=== PATIENT | female | born 1945 | race Caucasian/White ===

== ENCOUNTER 2016-09-22 04:15 | Emergency (ER) | payer MEDICARE, OTHER ==
[~2016-09-22] VITALS: Ht 157.5 cm; Wt 121.5 kg
[2016-09-22 04:15] VITALS: TEMP 98.1; Ht 157.5 cm; Wt 121.5 kg
--- OUTSIDE RECORDS SUMMARY | 2016-09-22 04:23 | XMS REPORT | Referral Summary ---
Author Author [facility], [facility] Organization [facility] Address Unknown Phone Unavailable Care Team Providers Care Line Inspector Name Role Phone Dallin Marie Primary Care Physician [phone] Encounter VC Date(s): 03/03/16 - 03/03/16 [facility], [address] [place] [id number] Discharge Disposition: 01-Home or Self Care Attending Physician: Guillermo Marie MD Admitting Physician: Guillermo Marie MD Vital Signs Most recent to 1 oldest [Reference Range]: Blood Pressure 144/70 mmHg [90-140/60-90 mmHg] *HI* (03/03/16 1:05 PM) Problem List Condition Effective Dates Status Health Status Informant Back pain(Confirmed) Active Benign essential Active hypertension(Confirm ed) Chronic kidney Active disease (CKD)(Confirmed) Dry eyes(Confirmed) Active Headache(Confirmed) Active Hyperlipidemia(Confi Active rmed) Chronic knee Active pain(Confirmed) Onychomycosis(Confir Active med) Overweight(Confirmed Active ) Scarlet Active fever(Confirmed) Snoring(Confirmed) Active Diabetes mellitus Active type 1 with comp(Confirmed) Chickenpox(Confirmed Active ) Allergies, Adverse Reactions, Alerts No Known Medication Allergies Medications Actos 45 mg oral tablet 22.5 mg 0.5 tabs, Oral, Daily, # 15 tabs, 0 Refill(s), Pharmacy: [id number], 0.5 tabs Oral Daily Start Date: 09/05/15 Status: Ordered albuterol 2 puffs, Inhalation, q4hr, as needed, HFA 90 mcg/actuation inhaler Start Date: 05/10/14 Status: Ordered amLODIPine-benazepril 10 mg-40 mg oral capsule See Instructions, 1 CAPS ORAL DAILY,X90 DAYS, # 90 caps, eRx: [facility] [id number], 1 CAPS ORAL DAILY,X90 DAYS Start Date: 08/13/15 Status: Ordered aspirin 81 mg oral tablet, chewable 1 tabs, Oral, Daily Start Date: 05/10/14 Status: Ordered Claritin 10 mg oral tablet 1 tabs, Oral, Daily Start Date: 05/10/14 Status: Ordered Fish Oil 1000 mg oral capsule 1 caps, Oral, Daily Start Date: 05/10/14 Status: Ordered glimepiride 4 mg oral tablet See Instructions, 1 TABS ORAL DAILY,X90 DAYS, # 90 tabs, eRx: [facility] [id number], 1 TABS ORAL DAILY,X90 DAYS Start Date: 08/13/15 Status: Ordered Glucometer strips (DME) DME Item Trutrack Test Strips; test blood sugar daily, See Instructions, Supply Start Date: 05/10/14 Status: Ordered hydrochlorothiazide 25 mg oral tablet See Instructions, TAKE 1 TABLET BY MOUTH TWICE DAILY FOR 90 DAYS, # 180 tabs, eRx: [facility] , TAKE 1 TABLET BY MOUTH TWICE DAILY FOR 90 DAYS Start Date: 01/31/16 Status: Ordered Jardiance 10 mg oral tablet See Instructions, TAKE TABLET BY MOUTH EVERY MORNING, # 90 tabs, eRx: [facility] [id number], TAKE TABLET BY MOUTH EVERY MORNING Start Date: 01/03/16 Status: Ordered Keflex 500 mg oral capsule 500 mg 1 caps, Oral, QID, X 5 days, # 20 caps, 0 Refill(s), Pharmacy: [facility] [id number], 1 caps Oral QID,x5 days Start Date: 03/03/16 Stop Date: 03/08/16 Status: Ordered metFORMIN 500 mg oral tablet See Instructions, TAKE 1 TABLET BY MOUTH EVERY MORNING AND 2 TABLETS BY MOUTH IN THE EVENING, # 270 tabs, eRx: [facility] [id number], TAKE 1 TABLET BY MOUTH EVERY MORNING AND 2 TABLETS BY MOUTH IN THE EVENING Start Date: 01/30/16 Status: Ordered Metoprolol Succinate ER 50 mg oral tablet, extended release See Instructions, TAKE 1 TABLET BY MOUTH DAILY, # 90 tabs, eRx: [facility] [id number], TAKE 1 TABLET BY MOUTH DAILY Start Date: 01/31/16 Status: Ordered multivitamin 1 tabs, Oral, Daily Start Date: 05/10/14 Status: Ordered mupirocin 2% topical ointment 1 karthikeyan, Topical, BID, apply 1 gram to affected area on face bid for 5 days, # 22 g, 0 Refill(s), Pharmacy: [facility] [id number] Start Date: 03/03/16 Status: Ordered pioglitazone 45 mg oral tablet See Instructions, 1 TABS ORAL DAILY, # 90 tabs, eRx: [facility] [id number] , 1 TABS ORAL DAILY Start Date: 08/13/15 Status: Ordered potassium chloride 10 mEq oral capsule, extended release See Instructions, TAKE 1 CAPSULE BY MOUTH TWICE DAILY FOR 90 DAYS, # 180 caps, eRx: [facility] [id number], TAKE 1 CAPSULE BY MOUTH TWICE DAILY FOR 90 DAYS Start Date: 01/30/16 Status: Ordered simvastatin 20 mg oral tablet See Instructions, TAKE 1 TABLET BY MOUTH EVERY NIGHT AT BEDTIME FOR 90 DAYS, # 90 tabs, eRx: [facility] [id number], TAKE 1 TABLET BY MOUTH EVERY NIGHT AT BEDTIME FOR 90 DAYS Start Date: 01/30/16 Status: Ordered Results Hematology Most recent to 1 oldest [Reference Range]: WBC [4.8-10.8 9.7 10*3/uL 10*3/uL] (03/03/16 1:45 PM) RBC [4.00-5.20] 5.66 *HI* (03/03/16 1:45 PM) Hgb [12.0-16.0 16.4 gm/dL gm/dL] *HI* (03/03/16 1:45 PM) Hct [37.0-47.0 %] 52.4 % *HI* (03/03/16 1:45 PM) MCV [82.0-99.0 fL] 92.6 fL (03/03/16 1:45 PM) MCH [27.0-32.0 pg] 29.0 pg (03/03/16 1:45 PM) MCHC [32.0-36.0 31.3 gm/dL gm/dL] *LOW* (03/03/16 1:45 PM) RDW [11.5-14.5 %] 15.0 % *HI* (03/03/16 1:45 PM) Platelet [150-400 217 10*3/uL 10*3/uL] (03/03/16 1:45 PM) MPV [8.8-14.8 fL] 12.1 fL (03/03/16 1:45 PM) Immature 0.3 % Granulocytes (03/03/16 1:45 PM) [0.0-1.0 %] Neutrophils [51-75 50 % %] *LOW* (03/03/16 1:45 PM) Lymphocytes [20-46 39 % %] (03/03/16 1:45 PM) Monocytes [4-11 %] 7 % (03/03/16 1:45 PM) Eosinophils [0-4 %] 4 % (03/03/16 1:45 PM) Basophils [0-2 %] 0 % (03/03/16 1:45 PM) Neutro Absolute 4.81 10*3 [1.90-7.00 10*3] (03/03/16 1:45 PM) Lymph Absolute 3.75 10*3 [0.80-3.30 10*3] *HI* (03/03/16 1:45 PM) [place]enton Absolute 0.72 10*3 [0.30-1.00 10*3] (03/03/16 1:45 PM) Eos Absolute 0.34 10*3 [0.00-0.50 10*3] (03/03/16 1:45 PM) Baso Absolute 0.02 10*3 [0.00-0.20 10*3] (03/03/16 1:45 PM) Chemistry Most recent to 1 oldest [Reference Range]: Sodium Lvl [135-144 138 mEq/L mEq/L] (03/03/16 1:45 PM) Potassium Lvl 4.3 mEq/L [3.5-5.2 mEq/L] (03/03/16 1:45 PM) Chloride [99-111 97 mEq/L mEq/L] *LOW* (03/03/16 1:45 PM) CO2 [22-31 mEq/L] 27 mEq/L (03/03/16 1:45 PM) AGAP [3-20] 14 (03/03/16 1:45 PM) BUN [10-20 mg/dL] 14 mg/dL (03/03/16 1:45 PM) Glucose Lvl [70-99 138 mg/dL mg/dL] *HI* (03/03/16 1:45 PM) Creatinine Lvl 1.09 mg/dL [0.57-1.11 mg/dL] (03/03/16 1:45 PM) eGFR [>60 mL/min] 50 mL/min 1 *ABN* (03/03/16 1:45 PM) Calcium Lvl 9.8 mg/dL [8.9-10.5 mg/dL] (03/03/16 1:45 PM) Albumin Lvl [3.4-4.8 4.4 gm/dL gm/dL] (03/03/16 1:45 PM) Total Protein 7.5 gm/dL [6.0-7.6 gm/dL] (03/03/16 1:45 PM) Globulin [1.8-4.0 3.1 gm/dL gm/dL] (03/03/16 1:45 PM) ALT [0-55 U/L] 26 U/L (03/03/16 1:45 PM) AST [5-34 U/L] 33 U/L (03/03/16 1:45 PM) Alk Phos [40-150 45 U/L U/L] (03/03/16 1:45 PM) Bili Total [0.2-1.2 0.7 mg/dL mg/dL] (03/03/16 1:45 PM) Chol [0-199 mg/dL] 142 mg/dL (03/03/16 1:45 PM) Trig [0-149 mg/dL] 191 mg/dL *HI* (03/03/16 1:45 PM) HDL [40-84 mg/dL] 57 mg/dL (03/03/16 1:45 PM) LDL [0-130 mg/dL] 47 mg/dL (03/03/16 1:45 PM) VLDL Cholesterol 38 mg/dL [0-28 mg/dL] *HI* (03/03/16 1:45 PM) Cardiac Risk 2.5 [0.0-5.0] (03/03/16 1:45 PM) TSH with Reflex Free 0.77 T4 [0.35-4.94] (03/03/16 1:45 PM) Hgb A1c [4.1-5.6 %] 7.6 % *HI* (03/03/16 1:45 PM) eAvg Glucose 171.4 mg/dL (03/03/16 1:45 PM) 1Result Comment: Multiply eGFR results by 1.21 for race. Urinalysis Most recent to 1 oldest [Reference Range]: UA Color Yellow (03/03/16 2:05 PM) UA Appear Cloudy *ABN* (03/03/16 2:05 PM) UA pH [5.0-8.0] 5.5 (03/03/16 2:05 PM) UA Leuk Est Trace [Negative] *ABN* (03/03/16 2:05 PM) UA Nitrite Negative [Negative] (03/03/16 2:05 PM) UA Protein Negative [Negative] (03/03/16 2:05 PM) UA Glucose Pos 3+ [Negative] *ABN* (03/03/16 2:05 PM) UA Ketones Negative [Negative] (03/03/16 2:05 PM) UA Urobilinogen 0.2 mg/dL [<1.0 mg/dL] (03/03/16 2:05 PM) UA Bili [Negative] Negative (03/03/16 2:05 PM) UA Blood [Negative] Negative (03/03/16 2:05 PM) UA Spec Grav 1.018 [1.003-1.030] (03/03/16 2:05 PM) Type Voided (03/03/16 2:05 PM) UA WBC [0-4] 10-20 *ABN* (03/03/16 2:05 PM) UA RBC [0-4] 0-4 (03/03/16 2:05 PM) Epithelial Cells 2-5 (03/03/16 2:05 PM) UA Hyal Cast [0-3] 1-3 (03/03/16 2:05 PM) Immunizations No data available for this section Procedures Procedure Date Related Diagnosis Body Site Cholecystectomy Social History Social History Type Response Smoking Status Never smoker Assessment and Plan Extracted from: Title: Ambulatory Patient Education Author: Guillermo Marie MD Date: 06/06 Family Medicine Community-Associated MRSA, [place] CA-MRSA stands for community-associated methicillin-resistant Staphylococcus aureus. MRSA is a type of bacteria that is resistant to some common antibiotics. It can cause infections in the skin and many other places in the body. Staphylococcus aureus, often called "staph," is a bacteria that normally lives on the skin or in the nose. Staph on the surface of the skin or in the nose does not cause problems. However, if the staph enters the body through a cut, wound, or break in the skin, an infection can happen. Up until recently, infections with the MRSA type of staph mainly occurred in hospitals and other health care settings. There are now increasing problems with MRSA infections in the community as well. Infections with MRSA may be very serious or even life threatening. CA-MRSA is becoming more common. It is known to spread in crowded settings, in jails and prisons, and in situations where there is close pwey-em-yair contact, such as during sporting events or in locker rooms. MRSA can be spread through shared items, such as children's toys, razors, towels, or sports equipment. CAUSES All staph, including MRSA, are normally harmless unless they enter the body through a scratch, cut, or wound, such as with surgery. All staph, including MRSA, can be spread from [id number]-ii-[id number] by touching contaminated objects or through direct contact. MRSA now causes illness in people who have not been in hospitals or other health care facilities. Cases of MRSA diseases in the community have been associated with: Recent antibiotic use. Sharing contaminated towels or clothes. Having active skin diseases. Participating in contact sports. Living in crowded settings. Intravenous (IV) drug use. Community-associated MRSA infections are usually skin infections, but may cause other severe illnesses. Staph bacteria are one of the most common causes of skin infection. However, they are also a common cause of pneumonia, bone or joint infections, and bloodstream infections. SCREENING AT [facility] (For compliance with the 2008 Medical Facility Infection Control and Prevention Act) As a part of our hospital's commitment to reduce antibiotic-resistant bacteria and keep patients safe, patients who meet specific criteria will have a culture collected from their nose in order to determine if they are carriers of the MRSA bacteria. If your culture comes back positive, nurses, doctors, and other health care staff will wear gowns and gloves when they come into your room. These protective measures are necessary to assure the highest level of safety for our patients. DIAGNOSIS Diagnosis of MRSA is done by cultures of fluid samples that may come from: Swabs taken from cuts or wounds in infected areas. Nasal swabs. Saliva or deep cough specimens from the lungs (sputum). Urine. Blood. Many people are "colonized" with MRSA but have no signs of infection. This means that people carry the MRSA germ on their skin or in their nose and may never develop MRSA infection. TREATMENT Treatment varies and is based on how serious, how deep, or how extensive the infection is. For example: Some skin infections, such as a small boil or abscess, may be treated by draining yellowish-white fluid (pus) from the site of the infection. Deeper or more widespread soft tissue infections are usually treated with surgery to drain pus and with antibiotic medicine given by vein or by mouth. This may be recommended even if you are . Serious infections may require a hospital stay. If antibiotics are given, they may be needed for several weeks. PREVENTION Because many people are colonized with staph, including MRSA, preventing the spread of the bacteria from [id number]-[id number] is most important. The best way to prevent the spread of bacteria and other germs is through proper hand washing or by using alcohol-based hand disinfectants. The following are other ways to help prevent MRSA infection within community settings. Wash your hands frequently with soap and water for at least 15 seconds. Otherwise, use alcohol-based hand disinfectants when soap and water is not available. Make sure people who live with you wash their hands often, too. Do not share personal items. For example, avoid sharing razors and other personal hygiene items, towels, clothing, and athletic equipment. Wash and dry your clothes and bedding at the warmest temperatures recommended on the labels. Keep wounds covered. Pus from infected sores may contain MRSA and other bacteria. Keep cuts and abrasions clean and covered with germ-free (sterile), dry bandages until they are healed. If you have a wound that appears infected, ask your caregiver if a culture for MRSA and other bacteria should be done. If you are , talk to your caregiver about MRSA. You may be asked to temporarily stop . HOME CARE INSTRUCTIONS Take your antibiotics as directed. Finish them even if you start to feel better. Avoid close contact with those around you as much as possible. Do not use towels, razors, toothbrushes, bedding, or other items that will be used by others. To fight the infection, follow your caregiver's instructions for wound care. Wash your hands before and after changing your bandages. If you have an intravascular device, such as a catheter, make sure you know how to care for it. Be sure to tell any health care providers that you have MRSA so they are aware of your infection. SEEK IMMEDIATE MEDICAL CARE IF: The infection appears to be getting worse. Signs include: Increased warmth, redness, or tenderness around the wound site. A red line that extends from the infection site. A dark color in the area around the infection. Wound drainage that is antony, yellow, or green. A bad smell coming from the wound. You feel sick to your stomach (nauseous) and throw up (vomit) or cannot keep medicine down. You have a fever. Your baby is older than 3 months with a rectal temperature of 102F ( 38.9C) or higher. Your baby is 3 months old or younger with a rectal temperature of 100.4 F (38C) or higher. You have difficulty breathing. MAKE SURE YOU: Understand these instructions. Will watch your condition. Will get help right away if you are not doing well or get worse. This information is not intended to replace advice given to you by your health care provider. Make sure you discuss any questions you have with your health care provider. Document Released: 03/17/2009 Document Revised: 06/29/2015 Document Reviewed: [facility] Patient Information 2016 [facility]. Home Health Care Cellulitis Cellulitis is an infection of the skin and the tissue beneath it. The infected area is usually red and tender. Cellulitis occurs most often in the arms and lower legs. CAUSES Cellulitis is caused by bacteria that enter the skin through cracks or cuts in the skin. The most common types of bacteria that cause cellulitis are staphylococci and streptococci. SIGNS AND SYMPTOMS Redness and warmth. Swelling. Tenderness or pain. Fever. DIAGNOSIS Your health care provider can usually determine what is wrong based on a physical exam. Blood tests may also be done. TREATMENT Treatment usually involves taking an antibiotic medicine. HOME CARE INSTRUCTIONS Take your antibiotic medicine as directed by your health care provider. Finish the antibiotic even if you start to feel better. Keep the infected arm or leg elevated to reduce swelling. Apply a warm cloth to the affected area up to 4 times per day to relieve pain. Take medicines only as directed by your health care provider. Keep all follow-up visits as directed by your health care provider. SEEK MEDICAL CARE IF: You notice red streaks coming from the infected area. Your red area gets larger or turns dark in color. Your bone or joint underneath the infected area becomes painful after the skin has healed. Your infection returns in the same area or another area. You notice a swollen bump in the infected area. You develop new symptoms. You have a fever. SEEK IMMEDIATE MEDICAL CARE IF: You feel very sleepy. You develop vomiting or diarrhea. You have a general ill feeling (malaise) with muscle aches and pains. MAKE SURE YOU: Understand these instructions. Will watch your condition. Will get help right away if you are not doing well or get worse. This information is not intended to replace advice given to you by your health care provider. Make sure you discuss any questions you have with your health care provider. Document Released: 03/18/2006 Document Revised: 06/29/2015 Document Reviewed: [facility] Patient Information 2016 [employer] [facility]. No follow up information was provided. Extracted from: Title: Office Visit Note Author: Guillermo Marie MD Date: 03/03/16 Assessment/Plan Abscess Culture pending. Ordered: Wound Culture Benign essential hypertension This issue was reviewed, appears stable, and current therapy continued except as mentioned. Appropriate lab was reviewed from the most recent appropriate entry and lab was ordered if needed in the cpoe /nursing orders, and follow up recommended generally in 90 days and no later then six months. The patient reports their blood pressure has been stable at home and is not having any significant or related problems. There has been no chest pain, chest pressure, soa/hurst. The patient has family members present who are agreeable with today's plan and have no additional concerns or requests. Rip here. Cellulitis Keflex 500mg po qid for five days and bactroban ointment bid for five days. Tdap recommended and refused. Chronic kidney disease (CKD) This issue was reviewed, appears stable, and current therapy continued except as mentioned. Appropriate lab was reviewed from the most recent appropriate entry and lab was ordered if needed in the cpoe /nursing orders, and follow up recommended generally in 90 days and no later then six months. Chronic knee pain This issue was reviewed, appears stable, and current therapy continued except as mentioned. Appropriate lab was reviewed from the most recent appropriate entry and lab was ordered if needed in the cpoe/nursing orders, and follow up recommended generally in 90 days and no later then six months. Stable at this time per her. Diabetes mellitus type 1 with comp This issue was reviewed, appears stable, and current therapy continued except as mentioned. Appropriate lab was reviewed from the most recent appropriate entry and lab was ordered if needed in the cpoe/nursing orders, and follow up recommended generally in 90 days and no later then six months. The patient was notified for the need for regular quarterly f/u of their diabetes. Further any pertinent medication, supplies, etc were refilled. Additionally, they are to have annual eye exams, foot exams, and regular care. Hyperlipidemia This issue was reviewed, appears stable, and current therapy continued except as mentioned. Appropriate lab was reviewed from the most recent appropriate entry and lab was ordered if needed in the cpoe/nursing orders, and follow up recommended generally in 90 days and no later then six months. Lab pending.
--- OUTSIDE RECORDS SUMMARY | 2016-09-22 04:23 | XMS REPORT | Referral Summary ---
Author Author [facility] Organization [facility] Address Unknown Phone Unavailable Care Team Providers Care Certified Juvenile Probation Officer Name Role Phone Dallin Marie Primary Care Physician [phone] Encounter VC Date(s): 05/25/15 - 05/25/15 [facility] [address] [place] [address] Discharge Disposition: 01-Home or Self Care Attending Physician: Guillermo Marie MD Admitting Physician: Guillermo Marie MD Vital Signs Most recent to 1 oldest [Reference Range]: Blood Pressure 130/80 mmHg [90-140/60-90 mmHg] (05/25/15 1:09 PM) Problem List Condition Effective Dates Status Health Status Informant Back pain(Confirmed) Active Benign essential Active hypertension(Confirm ed) Chronic kidney Active disease (CKD)(Confirmed) Dry eyes(Confirmed) Active Headache(Confirmed) Active Hyperlipidemia(Confi Active rmed) Chronic knee Active pain(Confirmed) Onychomycosis(Confir Active med) Overweight(Confirmed Active ) Scarlet Active fever(Confirmed) Diabetes mellitus Active type 1 with comp(Confirmed) Chickenpox(Confirmed Active ) Allergies, Adverse Reactions, Alerts No Known Medication Allergies Medications albuterol 2 puffs, Inhalation, q4hr, as needed, HFA 90 mcg/actuation inhaler Start Date: 05/10/14 Status: Ordered amLODIPine-benazepril 10 mg-40 mg oral capsule See Instructions, TAKE 1 CAPSULE BY MOUTH EVERY DAY, # 90 caps, 1 Refill(s), eRx : [id number], TAKE 1 CAPSULE BY MOUTH EVERY DAY Start Date: 02/05/15 Status: Ordered aspirin 81 mg oral tablet, chewable 1 tabs, Oral, Daily Start Date: 05/10/14 Status: Ordered Claritin 10 mg oral tablet 1 tabs, Oral, Daily Start Date: 05/10/14 Status: Ordered Fish Oil 1000 mg oral capsule 1 caps, Oral, Daily Start Date: 05/10/14 Status: Ordered glimepiride 4 mg oral tablet See Instructions, TAKE 1 TABLET BY MOUTH EVERY DAY, # 90 tabs, 1 Refill(s), eRx : [facility] [id number], TAKE 1 TABLET BY MOUTH EVERY DAY Start Date: 02/05/15 Status: Ordered Glucometer strips (DME) DME Item [facility] Test Strips; test blood sugar daily, See Instructions, Supply Start Date: 05/10/14 Status: Ordered hydrochlorothiazide 25 mg oral tablet See Instructions, TAKE 1 TABLET BY MOUTH TWICE DAILY, # 180 tabs, 1 Refill(s), eRx: [facility] , TAKE 1 TABLET BY MOUTH TWICE DAILY Start Date: 02/05/15 Status: Ordered Jardiance 10 mg oral tablet 1/2 tabs, Oral, qAM, # 30 Each, 0 Refill(s), samples given to patient (Rx) Start Date: 04/26/15 Status: Ordered metFORMIN 500 mg oral tablet See Instructions, TAKE 1 TABLET IN THE AM, AND 2 TABS IN THE PM, # 270 tabs, 1 Refill(s), eRx: [facility] [id number], TAKE 1 TABLET IN THE AM, AND 2 TABS IN THE PM Start Date: 02/05/15 Status: Ordered Metoprolol Succinate ER 50 mg oral tablet, extended release 50 mg 1 tabs, Oral, Daily, # 90 tabs, 0 Refill(s), Pharmacy: [facility] [id number] Start Date: 02/20/15 Status: Ordered multivitamin 1 tabs, Oral, Daily Start Date: 05/10/14 Status: Ordered pioglitazone 45 mg oral tablet See Instructions, TAKE 1 TABLET BY MOUTH DAILY, # 90 tabs, 1 Refill(s), eRx: [facility] [id number], TAKE 1 TABLET BY MOUTH DAILY Start Date: 02/05/15 Status: Ordered potassium chloride 10 mEq oral capsule, extended release See Instructions, TAKE 1 CAPSULE BY MOUTH TWICE DAILY, # 180 caps, 1 Refill(s), eRx: [facility] [id number], TAKE 1 CAPSULE BY MOUTH TWICE DAILY Start Date: 02/05/15 Status: Ordered simvastatin 20 mg oral tablet See Instructions, 1 TABS ORAL BEDTIME (ONCE A DAY),X90 DAYS, # 90 tabs, 1 Refill (s), eRx: [facility] [id number], 1 TABS ORAL BEDTIME (ONCE A DAY),X90 DAYS Start Date: 02/05/15 Status: Ordered Results No data available for this section Immunizations No data available for this section Procedures Procedure Date Related Diagnosis Body Site Cholecystectomy Social History Social History Type Response Smoking Status Never smoker Assessment and Plan Extracted from: Title: Ambulatory Patient Education Author: Guillermo aMrie MD Date: Family Medicine Cholesterol Cholesterol is a white, waxy, fat-like substance needed by your body in small amounts. The liver makes all the cholesterol you need. Cholesterol is carried from the liver by the blood through the blood vessels. Deposits of cholesterol ( plaque) may build up on blood vessel bob. These make the arteries narrower and stiffer. Cholesterol plaques increase the risk for heart attack and stroke. You cannot feel your cholesterol level even if it is very high. The only way to know it is high is with a blood test. Once you know your cholesterol levels, you should keep a record of the test results. Work with your health care provider to keep your levels in the desired range. WHAT DO THE RESULTS MEAN? Total cholesterol is a rough measure of all the cholesterol in your blood. LDL is the so-called bad cholesterol. This is the type that deposits cholesterol in the bob of the arteries. You want this level to be low. HDL is the good cholesterol because it cleans the arteries and carries the LDL away. You want this level to be high. Triglycerides are fat that the body can either burn for energy or store. High levels are closely linked to heart disease. WHAT ARE THE DESIRED LEVELS OF CHOLESTEROL? Total cholesterol below 200. LDL below 100 for people at risk, below 70 for those at very high risk. HDL above 50 is good, above 60 is best. Triglycerides below 150. HOW CAN I LOWER MY CHOLESTEROL? Diet. Follow your diet programs as directed by your health care provider. Choose fish or white meat chicken and turkey, roasted or baked. Limit fatty cuts of red meat, fried foods, and processed meats, such as sausage and lunch meats. Eat lots of fresh fruits and vegetables. Choose whole grains, beans, pasta, potatoes, and cereals. Use only small amounts of olive, corn, or canola oils. Avoid butter, mayonnaise, shortening, or palm kernel oils. Avoid foods with trans fats. Drink skim or nonfat milk and eat low-fat or nonfat yogurt and cheeses. Avoid whole milk, cream, ice cream, egg yolks, and full-fat cheeses. Healthy desserts include garett food cake, lenny snaps, animal crackers, hard candy, popsicles, and low-fat or nonfat frozen yogurt. Avoid pastries, cakes, pies, and cookies. Exercise. Follow your exercise programs as directed by your health care provider. A regular program helps decrease LDL and raise HDL. A regular program helps with weight control. Do things that increase your activity level like gardening, walking, or taking the stairs. Ask your health care provider about how you can be more active in your daily life. Medicine. Take medicine only as directed by your health care provider. Medicine may be prescribed by your health care provider to help lower cholesterol and decrease the risk for heart disease. If you have several risk factors, you may need medicine even if your levels are normal. Document Released: 03/03/2002 Document Revised: 10/23/2014 Document Reviewed: ExitCare Patient Information 2015 [employer]. This information is not intended to replace advice given to you by your health care provider. Make sure you discuss any questions you have with your health care provider. No follow up information was provided. Extracted from: Title: Office Visit Note Author: Guillermo Marie MD Date: 05/25/15 Assessment/Plan Benign essential hypertension This issue was reviewed, appears stable, and current therapy continued except as mentioned. Appropriate lab was reviewed from the most recent appropriate entry and lab was ordered if needed in the cpoe /nursing orders, and follow up recommended generally in 90 days and no later then six months. Chronic kidney disease (CKD) Stable. Lab reviewed and stable.GFR was last 59. Diabetes mellitus type 1 with comp Please make the medication adjustments we discussed. Please notify the office for any difficulties or concerns. Jardiance to 25mg 1/2 tab daily is the closest samples I have at this time. Recheck and recheck lab in 30 days. Patient very happy with progress at this time. Samples of the new medication were provided as a courtesy. Side effects were discussed and follow up was recommended. Hyperlipidemia This issue was reviewed, appears stable, and current therapy continued except as mentioned. Appropriate lab was reviewed from the most recent appropriate entry and lab was ordered if needed in the cpoe/nursing orders, and follow up recommended generally in 90 days and no later then six months. Lab reviewed. Overweight See above.
--- OUTSIDE RECORDS SUMMARY | 2016-09-22 04:23 | XMS REPORT | Referral Summary ---
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 Name Role Phone Dallin Marie Primary Care Physician [phone] Encounter VC Date(s): 08/03/15 - 08/03/15 [facility] [address] [place] [address] Discharge Disposition: 01-Home or Self Care Attending Physician: Guillermo Marie MD Admitting Physician: Guillermo Marie MD Vital Signs Most recent to 1 oldest [Reference Range]: Blood Pressure 140/80 mmHg [90-140/60-90 mmHg] (08/03/15 1:11 PM) Problem List Condition Effective Dates Status [...] # 90 caps, 1 Refill(s), eRx : [id number], TAKE 1 CAPSULE BY MOUTH EVERY DAY [...] # 90 tabs, 1 Refill(s), eRx : [facility] [id number], TAKE 1 TABLET BY MOUTH EVERY DAY Start Date: 02/05/15 Status: Ordered Glucometer strips (DME) DME Item [facility] Test Strips; test blood sugar daily, See Instructions, Supply Start Date: 05/10/14 Status: Ordered hydrochlorothiazide 25 mg oral tablet 25 mg 1 tabs, Oral, BID, X 90 days, # 180 tabs, 1 Refill(s), Pharmacy: [facility] [id number], 1 tabs Oral BID,x90 days Start Date: 08/03/15 Stop Date: 01/30/16 Status: Ordered Jardiance 10 mg oral tablet 10 mg 1 tabs, Oral, qAM, Note increase in dose., # 90 tabs, 0 Refill(s), Pharmacy: [facility] [id number], 1 tabs Oral qAM,x90 days,Instr:Note increase in dose. Start Date: 07/02/15 Stop Date: 09/30/15 Status: Ordered metFORMIN 500 mg oral tablet See Instructions, TAKE 1 TABLET IN THE AM, AND 2 TABS IN THE PM, # 270 tabs, 1 Refill(s), Pharmacy: [facility] [id number], TAKE 1 TABLET IN THE AM, AND 2 TABS IN THE PM Start Date: 08/03/15 Status: Ordered Metoprolol Succinate ER 50 mg oral tablet, extended release 50 mg 1 tabs, Oral, Daily, # 90 tabs, 1 Refill(s), Pharmacy: [facility] [id number] Start Date: 08/03/15 Status: Ordered multivitamin 1 tabs, Oral, Daily Start Date: 05/10/14 Status: Ordered pioglitazone 45 mg oral tablet 22.5 mg 0.5 tabs, Oral, Daily, X 90 days, # 45 tabs, 1 Refill(s), other reason ( Rx), TAKE 1 TABLET BY MOUTH DAILY Start Date: 08/03/15 Stop Date: 01/30/16 Status: Ordered potassium chloride 10 mEq oral capsule, extended release 10 mEq 1 caps, Oral, BID, X 90 days, # 180 caps, 1 Refill(s), Pharmacy: [id number], 1 caps Oral BID,x90 days Start Date: 08/03/15 Stop Date: 01/30/16 Status: Ordered simvastatin 20 mg oral tablet 20 mg 1 tabs, Oral, Bedtime (once a day), X 90 days, # 90 tabs, 1 Refill(s), Pharmacy: [facility] [id number], 1 tabs Oral Bedtime (once a day),x90 days Start Date: 08/03/15 Stop Date: 01/30/16 Status: Ordered Results No data available for this section Immunizations No data available for this section Procedures Procedure Date Related Diagnosis Body Site Cholecystectomy Social History Social History Type Response Smoking Status Never smoker Assessment and Plan Extracted from: Title: Ambulatory Patient Education Author: Guillermo Marie MD Date: 06/06 Family Medicine Diabetes, Feeding Your Child When a child is diagnosed with diabetes, there is always a concern about food. Food is important because it provides the nutrition needed for growth and development. Foods also play a role in controlling and maintaining blood sugar ( glucose) and preventing low blood glucose (hypoglycemia). FEEDING YOUR INFANT An with diabetes eats on a normal schedule. Breast milk or formula are both appropriate, and insulin is given based on blood glucose levels. After infancy, it is likely that a registered dietitian will help you set up a daily or weekly meal plan. MEAL PLANNING Approaches to meal planning vary. A registered dietitian can recommend the right meal plan for your child based on his or her age, size, activity, likes and dislikes, and anglican or ethnic beliefs. The dietitian may focus on food groups, exchanges, or carbohydrates. Whatever method you follow, healthy eating habits are the devine. Meals that are good for your child are good for the whole family. A healthy diet should include foods from all food groups. This includes meats, fruits, vegetables, starches, and occasional sweets. Eat 3 meals each day. Most children may also have 23 snacks each day. TIPS TO ENCOURAGE GOOD NUTRITION Promote water as the beverage of choice. Increase fiber intake. Encourage your child to eat whole grains in cereals, bread, beans, and popcorn. Increase fruit and vegetable intake. Keep cut-up vegetables available in the refrigerator. "Sneak" extra vegetables into stews, chili, and stir-delcid dishes. Occasional treats such as desserts for birthday parties or special occasions are fine. Your dietitian can help you fit them into your child's meal plan. HELP WHEN EATING OUT OR AT SCHOOL Beware of "supersizing" a food order for your child. Avoid going to buffets. They make it difficult to know the content and portion size of the food. Stick to foods you recognize and ones you know how to count. Avoid giving your child high-fat foods in excess. Try to stick to normal mealtimes. Always carry a snack for your child, in case of a delay. Work with your child's school to share and receive the information you need to help your child make good choices in the cafeteria and at school events. Special occasions and holiday cakes or treats can be worked into your child's meal plan. HEALTHY SNACK OPTIONS This is not a complete list, but it will give you ideas of what you might offer your child in place of less healthy options. Work with your child's registered dietitian for more suggestions: Raisins. Peanut butter crackers. Animal crackers. Apple slices. Celery with peanut butter. Carrot sticks. Cut-up vegetables and hummus. Cheese sticks. Yogurt with no sugar added. Pretzels and milk. Beef jerky and crackers. Whole grain crackers and cheese. BLOOD GLUCOSE GOALS Blood glucose goals for your child will vary depending on his or her age and the treatment goals set by your child's health care provider. There are 3 factors that affect blood glucose control: food, exercise or physical activity, and insulin. Your child may need extra food or less insulin with increased activity. Your child's health care provider will help you and your child with these adjustments. If your child is a picky eater and is on insulin, you may find you need to delay the mealtime insulin until you see how much he or she eats. This will give your child a more accurate dose and prevent later episodes of hypoglycemia. This information is not intended to replace advice given to you by your health care provider. Make sure you discuss any questions you have with your health care provider. Document Released: 06/10/2004 Document Revised: 10/23/2014 Document Reviewed: ExitCare Patient Information 2015 [employer] [facility]. No follow up information was provided. Extracted from: Title: Office Visit Note Author: Guillermo Marie MD Date: 08/03/15 Assessment/Plan Benign essential hypertension This issue was [...] been no chest pain, chest pressure, soa/hurst. Chronic kidney disease (CKD) This issue was reviewed, appears stable, and current therapy continued except as mentioned. Appropriate lab was reviewed from the most recent appropriate entry and lab was ordered if needed in the cpoe /nursing orders, and follow up recommended generally in 90 days and no later then six months. Limit nsaids. Diabetes mellitus type 1 with comp Samples of the new medication were provided as a courtesy. Side effects were discussed and follow up was recommended. Continue jardiance. Samples given. BGMs have been much better. HbA1C stable. Decrease actos [id number] 1/2 tab daily. Recheck in 30 days. Overweight See above. Diet and exercise as tolerated and feasible. Consider medication when interested. Orders: hydrochlorothiazide, 25 mg 1 tabs, Oral, BID, X 90 days, # 180 tabs, 1 Refill(s), Pharmacy: [facility] [id number], 1 tabs Oral BID,x90 days metFORMIN, See Instructions, TAKE 1 TABLET IN THE AM, AND 2 TABS IN THE PM, # 270 tabs, 1 Refill(s), Pharmacy: [facility] [id number], TAKE 1 TABLET IN THE AM, AND 2 TABS IN THE PM metoprolol, 50 mg 1 tabs, Oral, Daily, # 90 tabs, 1 Refill(s), Pharmacy: [facility] [id number] pioglitazone, 22.5 mg 0.5 tabs, Oral, Daily, X 90 days, # 45 tabs, 1 Refill(s) , other reason (Rx), TAKE 1 TABLET BY MOUTH DAILY potassium chloride, 10 mEq 1 caps, Oral, BID, X 90 days, # 180 caps, 1 Refill( s), Pharmacy: [facility] [id number], 1 caps Oral BID,x90 days simvastatin, 20 mg 1 tabs, Oral, Bedtime (once a day), X 90 days, # 90 tabs, 1 Refill(s), Pharmacy: [facility] [id number], 1 tabs Oral Bedtime (once a day),x90 days
--- OUTSIDE RECORDS SUMMARY | 2016-09-22 04:23 | XMS REPORT | Referral Summary ---
Author Author [facility] Organization [facility] Address Unknown Phone Unavailable Care Team Providers Care Director Of Quality Control Name Role Phone Dallin Marie Primary Care Physician [phone] Encounter VC Date(s): 07/02/15 - 07/02/15 [facility], Family [address] [place] [id number] Discharge Disposition: 01-Home or Self Care Attending Physician: Guillermo Marie MD Admitting Physician: Guillermo Marie MD Vital Signs Most recent to 1 oldest [Reference Range]: Blood Pressure 140/80 mmHg [90-140/60-90 mmHg] (07/02/15 1:05 PM) Problem List Condition Effective Dates [...] # 90 caps, 1 Refill(s), eRx : [facility], TAKE 1 CAPSULE BY MOUTH EVERY DAY [...] # 90 tabs, 1 Refill(s), [place] : [place] [id number], TAKE 1 TABLET BY MOUTH EVERY DAY Start Date: 02/05/15 Status: Ordered Glucometer strips (DME) DME Item Trutrack Test Strips; test blood sugar daily, See Instructions, Supply Start Date: 05/10/14 Status: Ordered hydrochlorothiazide 25 mg oral tablet See Instructions, TAKE 1 TABLET BY MOUTH TWICE DAILY, # 180 tabs, 1 Refill(s), [place]: [place] [place] [address], TAKE 1 TABLET BY MOUTH TWICE DAILY Start Date: 02/05/15 Status: Ordered Jardiance 10 mg oral tablet 10 mg 1 tabs, Oral, qAM, Note increase in dose., # 90 tabs, 0 Refill(s), Pharmacy: [place] [address], 1 tabs Oral qAM,x90 days,Instr:Note increase in dose. Start Date: 07/02/15 Stop Date: 09/30/15 Status: Ordered metFORMIN 500 mg oral tablet See Instructions, TAKE 1 TABLET IN THE AM, AND 2 TABS IN THE PM, # 270 tabs, 1 Refill(s), e[place]: [place] [place] [id number], TAKE 1 TABLET IN THE AM, AND 2 TABS IN THE PM Start Date: 02/05/15 Status: Ordered Metoprolol Succinate ER 50 mg oral tablet, extended release 50 mg 1 tabs, Oral, Daily, # 90 tabs, 0 Refill(s), Pharmacy: [place] [id number] Start Date: 02/20/15 Status: Ordered multivitamin 1 tabs, Oral, Daily Start Date: 05/10/14 Status: Ordered pioglitazone 45 mg oral tablet See Instructions, TAKE 1 TABLET BY MOUTH DAILY, # 90 tabs, 1 Refill(s), eRx: [place] [place] [id number], TAKE 1 TABLET BY MOUTH DAILY Start Date: 02/05/15 Status: Ordered potassium chloride 10 mEq oral capsule, extended release See Instructions, TAKE 1 CAPSULE BY MOUTH TWICE DAILY, # 180 caps, 1 Refill(s), eRx: [facility], TAKE 1 CAPSULE BY MOUTH TWICE DAILY Start Date: 02/05/15 Status: Ordered simvastatin 20 mg oral tablet See Instructions, 1 TABS ORAL BEDTIME (ONCE A DAY),X90 DAYS, # 90 tabs, 1 Refill (s), eRx: [facility]336, 1 TABS ORAL BEDTIME (ONCE A DAY),X90 DAYS Start Date: 02/05/15 Status: Ordered Results Hematology Most recent to 1 oldest [Reference Range]: WBC [4.8-10.8 10.8 10*3/uL 10*3/uL] (07/02/15 1:38 PM) RBC [4.00-5.20] 5.86 *HI* (07/02/15 1:38 PM) Hgb [12.0-16.0 16.6 gm/dL gm/dL] *HI* (07/02/15 1:38 PM) Hct [37.0-47.0 %] 53.3 % *HI* (07/02/15 1:38 PM) MCV [82.0-99.0 fL] 91.0 fL (07/02/15 1:38 PM) MCH [27.0-32.0 pg] 28.3 pg (07/02/15 1:38 PM) MCHC [32.0-36.0 31.1 gm/dL gm/dL] *LOW* (07/02/15 1:38 PM) RDW [11.5-14.5 %] 14.5 % (07/02/15 1:38 PM) Platelet [150-400 213 10*3/uL 10*3/uL] (07/02/15 1:38 PM) MPV [8.8-14.8 fL] 12.3 fL (07/02/15 1:38 PM) Immature 0.3 % Granulocytes (07/02/15 1:38 PM) [0.0-1.0 %] Neutrophils [51-75 52 % %] (07/02/15 1:38 PM) Lymphocytes [20-46 38 % %] (07/02/15 1:38 PM) Monocytes [4-11 %] 6 % (07/02/15 1:38 PM) Eosinophils [0-4 %] 3 % (07/02/15 1:38 PM) Basophils [0-2 %] 0 % (07/02/15 1:38 PM) Neutro Absolute 5.64 10*3 [1.90-7.00 10*3] (07/02/15 1:38 PM) Lymph Absolute 4.10 10*3 [0.80-3.30 10*3] *HI* (07/02/15 1:38 PM) Turner Absolute 0.64 10*3 [0.30-1.00 10*3] (07/02/15 1:38 PM) Eos Absolute 0.37 10*3 [0.00-0.50 10*3] (07/02/15 1:38 PM) Baso Absolute 0.03 10*3 [0.00-0.20 10*3] (07/02/15 1:38 PM) Chemistry Most recent to 1 oldest [Reference Range]: Sodium Lvl [135-144 139 mEq/L mEq/L] (07/02/15 1:38 PM) Potassium Lvl 4.4 mEq/L [3.5-5.2 mEq/L] (07/02/15 1:38 PM) Chloride [99-111 97 mEq/L mEq/L] *LOW* (07/02/15 1:38 PM) CO2 [22-31 mEq/L] 26 mEq/L (07/02/15 1:38 PM) AGAP [3-20] 16 (07/02/15 1:38 PM) BUN [10-20 mg/dL] 12 mg/dL (07/02/15 1:38 PM) Glucose Lvl [70-99 112 mg/dL mg/dL] *HI* (07/02/15 1:38 PM) Creatinine Lvl 1.09 mg/dL [0.57-1.11 mg/dL] (07/02/15 1:38 PM) eGFR [>60 mL/min] 50 mL/min 1 *ABN* (07/02/15 1:38 PM) Calcium Lvl 10.7 mg/dL [8.9-10.5 mg/dL] *HI* (07/02/15 1:38 PM) Albumin Lvl [3.4-4.8 4.6 gm/dL gm/dL] (07/02/15 1:38 PM) Total Protein 8.4 gm/dL [6.2-8.1 gm/dL] *HI* (07/02/15 1:38 PM) Globulin [1.8-4.0 3.8 gm/dL gm/dL] (07/02/15 1:38 PM) ALT [0-55 U/L] 28 U/L (07/02/15 1:38 PM) AST [5-34 U/L] 38 U/L *HI* (07/02/15 1:38 PM) Alk Phos [40-150 52 U/L U/L] (07/02/15 1:38 PM) Bili Total [0.2-1.2 0.7 mg/dL mg/dL] (07/02/15 1:38 PM) Chol [0-199 mg/dL] 165 mg/dL (07/02/15 1:38 PM) Trig [0-149 mg/dL] 218 mg/dL *HI* (07/02/15 1:38 PM) HDL [40-84 mg/dL] 62 mg/dL (07/02/15 1:38 PM) LDL [0-130 mg/dL] 59 mg/dL (07/02/15 1:38 PM) VLDL Cholesterol 44 mg/dL [0-28 mg/dL] *HI* (07/02/15 1:38 PM) Cardiac Risk 2.7 [0.0-5.0] (07/02/15 1:38 PM) TSH with Reflex Free 1.02 T4 [0.35-4.94] (07/02/15 1:38 PM) Hgb A1c [4.1-5.6 %] 6.8 % *HI* (07/02/15 1:38 PM) eAvg Glucose 148.5 mg/dL (07/02/15 1:38 PM) 1Result Comment: Multiply eGFR results by 1.21 for race. Immunizations No data available for this section Procedures Procedure Date Related Diagnosis Body Site Cholecystectomy Social History Social History Type Response Smoking Status Never smoker Assessment and Plan Extracted from: Title: Ambulatory Patient Education Author: Guillermo Marie MD Date: 05/07 Family Medicine Cholesterol Cholesterol is a white, [...] 10/23/2014 Document Reviewed: Exit[employer] Patient Information 2015 [employer]. This information is not intended to replace advice given to you by your health care provider. Make sure you discuss any questions you have with your health care provider. No follow up information was provided. Extracted from: Title: Office Visit Note Author: Guillermo Marie MD Date: 07/02/15 Assessment/Plan Benign essential hypertension This issue was [...] days and no later then six months. Last gfr was 59. Stable for jardiance. Diabetes mellitus type 1 with comp This [...] eye exams, foot exams, and regular care. High blood sugar This issue was reviewed, appears stable, and current therapy continued except as mentioned. Appropriate lab was reviewed from the most recent appropriate entry and lab was ordered if needed in the cpoe/nursing orders, and follow up recommended generally in 90 days and no later then six months. Samples of the new medication were provided as a courtesy. Side effects were discussed and follow up was recommended. See above. Lab reviewed and lab pending. Ordered: CBC w/ Differential Comprehensive Metabolic Panel Hemoglobin A1c TSH with Reflex Free T4 High cholesterol This issue was reviewed, appears stable, and current therapy continued except as mentioned. Appropriate lab was reviewed from the most recent appropriate entry and lab was ordered if needed in the cpoe/nursing orders, and follow up recommended generally in 90 days and no later then six months. Lab pending. Ordered: Lipid Panel Orders: empagliflozin, 10 mg 1 tabs, Oral, qAM, Note increase in dose., # 90 tabs, 0 Refill(s), Pharmacy: [facility] [id number], 1 tabs Oral qAM,x90 days,Instr:Note increase in dose.
--- OUTSIDE RECORDS SUMMARY | 2016-09-22 04:23 | XMS REPORT | Referral Summary ---
Author Author [facility], Family [facility] Organization [facility] Address Unknown Phone Unavailable Care Team Providers Care Direct Marketing Representative Name Role Phone Dallin Marie Primary Care Physician [phone] Encounter Date(s): 07/11/16 - 07/11/16 [facility], [address] [place] [id number] Discharge Diagnosis: Chronic kidney disease (CKD) Discharge Diagnosis: Back pain Discharge Diagnosis: Benign essential hypertension Discharge Diagnosis: Diabetes mellitus type 1 with comp Discharge Diagnosis: Overweight Discharge Disposition: 01-Home or Self Care Attending Physician: Guillermo Marie MD Admitting Physician: Guillermo Marie MD Vital Signs Most recent to 1 oldest [Reference Range]: Blood Pressure 150/76 mmHg [90-140/60-90 mmHg] *HI* (07/11/16 1:50 PM) Problem List Condition Effective Dates Status [...] Ordered amLODIPine-benazepril 10 mg-40 mg oral capsule 1 caps, Oral, Daily, # 90 caps, 1 Refill(s), Pharmacy: [id number] Start Date: 07/11/16 Status: Ordered aspirin 81 mg oral tablet, chewable 1 tabs, Oral, Daily Start Date: 05/10/14 Status: Ordered Claritin 10 mg oral tablet 1 tabs, Oral, Daily Start Date: 05/10/14 Status: Ordered Fish Oil 1000 mg oral capsule 1 caps, Oral, Daily Start Date: 05/10/14 Status: Ordered glimepiride 4 mg oral tablet See Instructions, TAKE 1 TABLET BY MOUTH DAILY, # 90 tabs, eRx: [facility] [id number], TAKE 1 TABLET BY MOUTH DAILY Start Date: 05/01/16 Status: Ordered Glucometer strips (DME) DME Item Trutrack Test Strips; test blood sugar daily, See Instructions, Supply Start Date: 05/10/14 Status: Ordered hydroCHLOROthiazide 25 mg oral tablet See Instructions, TAKE 1 TABLET BY MOUTH TWICE DAILY, # 180 tabs, eRx: [facility] , TAKE 1 TABLET BY MOUTH TWICE DAILY Start Date: 04/28/16 Status: Ordered Jardiance 10 mg oral tablet See Instructions, TAKE 1 TABLET BY MOUTH EVERY MORNING, # 90 tabs, 1 Refill(s), Pharmacy: [facility] [id number], TAKE 1 TABLET BY MOUTH EVERY MORNING Start Date: 07/11/16 Status: Ordered metFORMIN 500 mg oral tablet See Instructions, TAKE 1 TABLET BY MOUTH EVERY MORNING AND 2 TABLETS BY MOUTH IN THE EVENING, # 270 tabs, eRx: [facility] , TAKE 1 TABLET BY MOUTH EVERY MORNING AND 2 TABLETS BY MOUTH IN THE EVENING Start Date: 04/28/16 Status: Ordered Metoprolol Succinate ER 50 mg oral tablet, extended release See Instructions, TAKE 1 TABLET BY MOUTH DAILY, # 90 tabs, eRx: [facility] , TAKE 1 TABLET BY MOUTH DAILY Start Date: 04/29/16 Status: Ordered multivitamin 1 tabs, Oral, Daily Start Date: 05/10/14 Status: Ordered mupirocin 2% topical ointment 1 karthikeyan, Topical, BID, apply 1 gram to affected area on face bid for 5 days, # 22 g, 0 Refill(s), Pharmacy: [facility] [id number] Start Date: 03/03/16 Status: Ordered pioglitazone 45 mg oral tablet See Instructions, TAKE 1 TABLET BY MOUTH DAILY, # 90 tabs, eRx: [facility] , TAKE 1 TABLET BY MOUTH DAILY Start Date: 05/01/16 Status: Ordered potassium chloride 10 mEq oral capsule, extended release See Instructions, TAKE 1 CAPSULE BY MOUTH TWICE DAILY, # 180 caps, eRx: [facility] , TAKE 1 CAPSULE BY MOUTH TWICE DAILY Start Date: 04/28/16 Status: Ordered simvastatin 20 mg oral tablet See Instructions, TAKE 1 TABLET BY MOUTH EVERY NIGHT AT BEDTIME FOR 90 DAYS, # 90 tabs, eRx: [facility] , TAKE 1 TABLET BY MOUTH EVERY NIGHT AT BEDTIME FOR 90 DAYS Start Date: 04/28/16 Status: Ordered Results No data available for this section Immunizations No data available for this section Procedures Procedure Date Related Diagnosis Body Site Cholecystectomy Social History Social History Type Response Smoking Status Never smoker Assessment and Plan Extracted from: Title: Ambulatory Patient Education Author: Guillermo Marie MD Date: Musculoskeletal Back Pain, Adult Back pain is very common in adults.The cause of back pain is rarely dangerous and the pain often gets better over time.The cause of your back pain may not be known. Some common causes of back pain include: Strain of the muscles or ligaments supporting the spine. Wear and tear (degeneration) of the spinal disks. Arthritis. Direct injury to the back. For many people, back pain may return. Since back pain is rarely dangerous, most people can learn to manage this condition on their own. HOME CARE INSTRUCTIONS Watch your back pain for any changes. The following actions may help to lessen any discomfort you are feeling: Remain active. It is stressful on your back to sit or manufacturing support engineer one place for long periods of time. Do not sit, drive, or manufacturing support engineer one place for more than 30 minutes at a time. Take short walks on even surfaces as soon as you are able.Try to increase the length of time you walk each day. Exercise regularly as directed by your health care provider. Exercise helps your back heal faster. It also helps avoid future injury by keeping your muscles strong and flexible. Do not stay in bed.Resting more than 12 days can delay your recovery. Pay attention to your body when you bend and lift. The most comfortable positions are those that put less stress on your recovering back. Always use proper lifting techniques, including: Bending your knees. Keeping the load close to your body. Avoiding twisting. Find a comfortable position to sleep. Use a firm mattress and lie on your side with your knees slightly bent. If you lie on your back, put a pillow under your knees. Avoid feeling anxious or stressed.Stress increases muscle tension and can worsen back pain.It is important to recognize when you are anxious or stressed and learn ways to manage it, such as with exercise. Take medicines only as directed by your health care provider. Over-the- counter medicines to reduce pain and inflammation are often the most helpful. Your health care provider may prescribe muscle relaxant drugs.These medicines help dull your pain so you can more quickly return to your normal activities and healthy exercise. Apply ice to the injured area: Put ice in a plastic bag. Place a towel between your skin and the bag. Leave the ice on for 20 minutes, 23 times a day for the first 23 days. After that, ice and heat may be alternated to reduce pain and spasms. Maintain a healthy weight. Excess weight puts extra stress on your back and makes it difficult to maintain good posture. SEEK MEDICAL CARE IF: You have pain that is not relieved with rest or medicine. You have increasing pain going down into the legs or buttocks. You have pain that does not improve in one week. You have night pain. You lose weight. You have a fever or chills. SEEK IMMEDIATE MEDICAL CARE IF: You develop new bowel or bladder control problems. You have unusual weakness or numbness in your arms or legs. You develop nausea or vomiting. You develop abdominal pain. You feel faint. This information is not intended to replace advice given to you by your health care provider. Make sure you discuss any questions you have with your health care provider. Document Released: 06/08/2006 Document Revised: 06/29/2015 Document Reviewed: [employer] Patient Education 2016 [employer] No follow up information was provided. Extracted from: Title: Office Visit Note Author: Guillermo Marie MD Date: 07/11/16 Assessment/Plan Back pain This issue was reviewed, appears stable, and current therapy continued except as mentioned. Appropriate lab was reviewed from the most recent appropriate entry and lab was ordered if needed in the cpoe/nursing orders, and follow up recommended generally in 90 days and no later then six months. Benign essential hypertension This issue was reviewed, [...] chest pain, chest pressure, soa/hurst. The patient had an elevated blood pressure reading and is to monitor their bp and call with a report if consistently > 140/90. Chronic kidney disease (CKD) This issue was reviewed, appears stable, and current therapy continued except as mentioned. Appropriate lab was reviewed from the most recent appropriate entry and lab was ordered if needed in the cpoe/nursing orders, and follow up recommended generally in 90 days and no later then six months. Limit nsaids. Diabetes mellitus type 1 with comp The patient was notified for the need for regular quarterly f/u of their diabetes. Further any pertinent medication, supplies, etc were refilled. Additionally, they are to have annual eye exams, foot exams, and regular care. Samples of the new medication were provided as a courtesy. Side effects were discussed and follow up was recommended. Jardiance provided as a courtesy. Overweight Diet and exercise as tolerated and feasible. Consider medication when interested. The patient has family members present who are agreeable with today's plan and have no additional concerns or requests. here. A work/school note was offered and deferred by the patient.
--- OUTSIDE RECORDS SUMMARY | 2016-09-22 04:23 | XMS REPORT | Referral Summary ---
Author Author [facility] Organization [facility] Address Unknown Phone Unavailable Care Team Providers Care Career Resource Specialist Name Role Phone Dallin Marie Primary Care Physician [phone] Encounter VC Date(s): 04/26/15 - 04/26/15 [facility], Family [address] [place] [address] Discharge Disposition: 01-Home or Self Care Attending Physician: Guillermo Marie MD Admitting Physician: Guillermo Marie MD Vital Signs Most recent to 1 oldest [Reference Range]: Blood Pressure 160/90 mmHg [90-140/60-90 mmHg] *HI* (04/26/15 1:05 PM) Problem List Condition Effective Dates [...] # 90 caps, 1 Refill(s), eRx : [facility] [address]10, TAKE 1 CAPSULE BY MOUTH EVERY DAY [...] # 90 tabs, 1 Refill(s), eRx : [facility] [id number], TAKE 1 TABLET BY MOUTH EVERY DAY Start Date: 02/05/15 Status: Ordered Glucometer strips (DME) DME Item Trutrack Test Strips; test blood sugar daily, See Instructions, Supply Start Date: 05/10/14 Status: Ordered hydrochlorothiazide 25 mg oral tablet See Instructions, TAKE 1 TABLET BY MOUTH TWICE DAILY, # 180 tabs, 1 Refill(s), eRx: [facility] , TAKE 1 TABLET BY MOUTH TWICE DAILY Start Date: 02/05/15 Status: Ordered Jardiance 10 mg oral tablet 1/2 tabs, Oral, qAM, # 30 Each, 0 Refill(s), samples given to patient (Rx) Start Date: 04/26/15 Status: Ordered metFORMIN 500 mg oral tablet See Instructions, TAKE 1 TABLET IN THE AM, AND 2 TABS IN THE PM, # 270 tabs, 1 Refill(s), eRx: [facility] , TAKE 1 TABLET IN THE AM, AND 2 TABS IN THE PM Start Date: 02/05/15 Status: Ordered Metoprolol Succinate ER 50 mg oral tablet, extended release 50 mg 1 tabs, Oral, Daily, # 90 tabs, 0 Refill(s), Pharmacy: [facility] [id number] Start Date: 02/20/15 Status: Ordered multivitamin 1 tabs, Oral, Daily Start Date: 05/10/14 Status: Ordered pioglitazone 45 mg oral tablet See Instructions, TAKE 1 TABLET BY MOUTH DAILY, # 90 tabs, 1 Refill(s), eRx: [facility] , TAKE 1 TABLET BY MOUTH DAILY Start Date: 02/05/15 Status: Ordered potassium chloride 10 mEq oral capsule, extended release See Instructions, TAKE 1 CAPSULE BY MOUTH TWICE DAILY, # 180 caps, 1 Refill(s), eRx: [facility] [id number], TAKE 1 CAPSULE BY MOUTH TWICE DAILY Start Date: 02/05/15 Status: Ordered simvastatin 20 mg oral tablet See Instructions, 1 TABS ORAL BEDTIME (ONCE A DAY),X90 DAYS, # 90 tabs, 1 Refill (s), eRx: [facility] [address], 1 TABS ORAL BEDTIME (ONCE A DAY),X90 DAYS Start Date: 02/05/15 Status: Ordered Results No data available for this section Immunizations No data available for this section Procedures Procedure Date Related Diagnosis Body Site Cholecystectomy Social History Social History Type Response Smoking Status Never smoker Assessment and Plan Extracted from: Title: Office Visit Note Author: Guillermo Marie MD Date: 04/26/15 Assessment/Plan Benign essential hypertension This issue was reviewed, appears stable, and current therapy continued except as mentioned. Appropriate lab was reviewed from the most recent appropriate entry and lab was ordered if needed in the cpoe /nursing orders, and follow up arranged. Chronic kidney disease (CKD) This issue was reviewed, appears stable, and current therapy continued except as mentioned. Appropriate lab was reviewed from the most recent appropriate entry and lab was ordered if needed in the cpoe /nursing orders, and follow up arranged. Lab from 01/16/15 was stable. GFR was basically normal allowing her to try jardiance for diabetes. Diabetes mellitus type 1 with comp This issue was reviewed, appears stable, and current therapy continued except as mentioned. Appropriate lab was reviewed from the most recent appropriate entry and lab was ordered if needed in the cpoe/nursing orders, and follow up arranged. She has NO insulin. She wantsto try jardiance. Samples of the new medication were provided as a courtesy. Side effects were discussed and follow up was recommended. Jardiance 10mg 1/2 tab daily. Side effects discussed. Recheck in 30 days or sooner prn. Hyperlipidemia This issue was reviewed, appears stable, and current therapy continued except as mentioned. Appropriate lab was reviewed from the most recent appropriate entry and lab was ordered if needed in the cpoe/nursing orders, and follow up arranged. The patient has family members present who are agreeable with today's plan and have no additional concerns or requests. Onychomycosis We discussed several options for treatment for this condition. The patient declined any changes or other treatments at this time. Overweight See above. Given Jardiance.
--- OUTSIDE RECORDS SUMMARY | 2016-09-22 04:23 | XMS REPORT | Referral Summary ---
Author Author [facility] Organization [facility] Address Unknown Phone Unavailable Care Team Providers Care Fence Erector Name Role Phone Dallin Marie Primary Care Physician [phone] Encounter VC Date(s): 01/15/15 - 01/15/15 [facility], [address] [place] [address] Discharge Disposition: 01-Home or Self Care Attending Physician: Guillermo Marie MD Admitting Physician: Guillermo Marie MD Vital Signs Most recent to 1 oldest [Reference Range]: Blood Pressure 160/90 mmHg [90-140/60-90 mmHg] *HI* (01/15/15 1:06 PM) Problem List Condition Effective Dates Status [...] # 90 caps, 1 Refill(s), eRx : [id number], TAKE 1 CAPSULE BY MOUTH EVERY DAY [...] # 90 tabs, 1 Refill(s), eRx : [facility] [id number], TAKE 1 TABLET BY MOUTH EVERY DAY Start Date: 02/05/15 Status: Ordered Glucometer strips (DME) DME Item Trutrack Test Strips; test blood sugar daily, See Instructions, Supply Start Date: 05/10/14 Status: Ordered hydrochlorothiazide 25 mg oral tablet See Instructions, TAKE 1 TABLET BY MOUTH TWICE DAILY, # 180 tabs, 1 Refill(s), eRx: [facility] [id number], TAKE 1 TABLET BY MOUTH TWICE DAILY Start Date: 02/05/15 Status: Ordered Jardiance 10 mg oral tablet 10 mg 1 tabs, Oral, qAM, Note increase in dose., # 90 tabs, 0 Refill(s), Pharmacy: [facility] [id number], 1 tabs Oral qAM,x90 days,Instr:Note increase in dose. Start Date: 07/02/15 Stop Date: 09/30/15 Status: Ordered metFORMIN 500 mg oral tablet See Instructions, TAKE 1 TABLET IN THE AM, AND 2 TABS IN THE PM, # 270 tabs, 1 Refill(s), eRx: [facility] [id number], TAKE 1 TABLET IN THE AM, AND 2 TABS IN THE PM Start Date: 02/05/15 Status: Ordered Metoprolol Succinate ER 50 mg oral tablet, extended release 50 mg 1 tabs, Oral, Daily, # 90 tabs, 0 Refill(s), Pharmacy: [facility] [id number] Start Date: 02/20/15 Status: Ordered multivitamin 1 tabs, Oral, Daily Start Date: 05/10/14 Status: Ordered pioglitazone 45 mg oral tablet See Instructions, TAKE 1 TABLET BY MOUTH DAILY, # 90 tabs, 1 Refill(s), eRx: [facility] [id number], TAKE 1 TABLET BY MOUTH DAILY Start Date: 02/05/15 Status: Ordered potassium chloride 10 mEq oral capsule, extended release See Instructions, TAKE 1 CAPSULE BY MOUTH TWICE DAILY, # 180 caps, 1 Refill(s), eRx: [facility] [id number], TAKE 1 CAPSULE BY MOUTH TWICE DAILY Start Date: 02/05/15 Status: Ordered simvastatin 20 mg oral tablet See Instructions, 1 TABS ORAL BEDTIME (ONCE A DAY),X90 DAYS, # 90 tabs, 1 Refill (s), eRx: [facility] [id number], 1 TABS ORAL BEDTIME (ONCE A DAY),X90 DAYS Start Date: 02/05/15 Status: Ordered Results Urinalysis Most recent to 1 oldest [Reference Range]: UA Color Yellow (01/15/15 1:52 PM) UA Appear Clear (01/15/15 1:52 PM) UA pH [5.0-8.0] 7.0 (01/15/15 1:52 PM) UA Leuk Est Pos 2+ [Negative] *ABN* (01/15/15 1:52 PM) UA Nitrite Negative [Negative] (01/15/15 1:52 PM) UA Protein Negative [Negative] (01/15/15 1:52 PM) UA Glucose Negative [Negative] (01/15/15 1:52 PM) UA Ketones Negative [Negative] (01/15/15 1:52 PM) UA Urobilinogen 0.2 mg/dL [<1.0 mg/dL] (01/15/15 1:52 PM) UA Bili [Negative] Negative (01/15/15 1:52 PM) UA Blood [Negative] Negative (01/15/15 1:52 PM) UA Spec Grav 1.006 [1.003-1.030] (01/15/15 1:52 PM) Type Voided (01/15/15 1:52 PM) UA WBC [0-4] 5-10 *ABN* (01/15/15 1:52 PM) UA RBC [0-4] 0-4 (01/15/15 1:52 PM) Epithelial Cells 2-5 (01/15/15 1:52 PM) UA Hyal Cast [0-3] 1-3 (01/15/15 1:52 PM) Microbiology Reports TEST: Urine Culture STATUS: Auth (Verified) BODY SITE: SOURCE: Urine COLLECTED DATE/TIME: 01/15/15 1:52 PM Urine Culture No growth Immunizations No data available for this section Procedures Procedure Date Related Diagnosis Body Site Cholecystectomy Social History Social History Type Response Smoking Status Never smoker Assessment and Plan Extracted from: Title: Ambulatory Patient Education Author: Guillermo Marie MD Date: Family Medicine Arthralgia Your caregiver has diagnosed you as suffering from an arthralgia. Arthralgia means there is pain in a joint. This can come from many reasons including: Bruising the joint which causes soreness (inflammation) in the joint. Wear and tear on the joints which occur as we grow older (osteoarthritis). Overusing the joint. Various forms of arthritis. Infections of the joint. Regardless of the cause of pain in your joint, most of these different pains respond to anti-inflammatory drugs and rest. The exception to this is when a joint is infected, and these cases are treated with antibiotics, if it is a bacterial infection. HOME CARE INSTRUCTIONS Rest the injured area for as long as directed by your caregiver. Then slowly start using the joint as directed by your caregiver and as the pain allows. Crutches as directed may be useful if the ankles, knees or hips are involved. If the knee was splinted or casted, continue use and care as directed. If an stretchy or elastic wrapping bandage has been applied today, it should be removed and re-applied every 3 to 4 hours. It should not be applied tightly, but firmly enough to keep swelling down. Watch toes and feet for swelling, bluish discoloration, coldness, numbness or excessive pain. If any of these problems (symptoms) occur, remove the lyubov bandage and re-apply more loosely. If these symptoms persist, contact your caregiver or return to this location. For the first 24 hours, keep the injured extremity elevated on pillows while lying down. Apply ice for 15-20 minutes to the sore joint every couple hours while awake for the first half day. Then 03-04 times per day for the first 48 hours. Put the ice in a plastic bag and place a towel between the bag of ice and your skin. Wear any splinting, casting, elastic bandage applications, or slings as instructed. Only take [id number] or prescription medicines for pain, discomfort, or fever as directed by your caregiver. Do not use aspirin immediately after the injury unless instructed by your physician. Aspirin can cause increased bleeding and bruising of the tissues. If you were given crutches, continue to use them as instructed and do not resume weight bearing on the sore joint until instructed. Persistent pain and inability to use the sore joint as directed for more than 2 to 3 days are warning signs indicating that you should see a caregiver for a follow-up visit as soon as possible. Initially, a hairline fracture (break in bone) may not be evident on X-rays. Persistent pain and swelling indicate that further evaluation, non-weight bearing or use of the joint (use of crutches or slings as instructed), or further X-rays are indicated. X-rays may sometimes not show a small fracture until a week or 10 days later. Make a follow-up appointment with your own caregiver or one to whom we have referred you. A radiologist (specialist in reading X-rays) may read your X-rays. Make sure you know how you are to obtain your X-ray results. Do not assume everything is normal if you do not hear from us. SEEK MEDICAL CARE IF: Bruising, swelling, or pain increases. SEEK IMMEDIATE MEDICAL CARE IF: Your fingers or toes are numb or blue. The pain is not responding to medications and continues to stay the same or get worse. The pain in your joint becomes severe. You develop a fever over 102 F (38.9 C). It becomes impossible to move or use the joint. MAKE SURE YOU: Understand these instructions. Will watch your condition. Will get help right away if you are not doing well or get worse. Document Released: 06/08/2006 Document Revised: 08/30/2012 Document Reviewed: [facility] Patient Information 2015 [employer] [facility]. This information is not intended to replace advice given to you by your health care provider. Make sure you discuss any questions you have with your health care provider. No follow up information was provided. Extracted from: Title: Office Visit Note Author: Guillermo Marie MD Date: 01/15/15 Assessment/Plan Chronic kidney disease (CKD) This issue is stable and appropriate refills, lab , and f/u have been discussed. Limit nsaids. Chronic knee pain This issue is stable and appropriate refills, lab, and f/u have been discussed. Handicapped parking permit reauthorized. Diabetes mellitus type 1 with comp This issue is stable and appropriate refills, lab, and f/u have been discussed. The patient was notified for the need for regular quarterly f/u of their diabetes. Further any pertinent medication, supplies, etc were refilled. Additionally, they are to have annual eye exams, foot exams, and regular care. Elevated cholesterol This issue is stable and appropriate refills, lab, and f/ u have been discussed. Ordered: Lipid Panel Elevated glucose This issue is stable and appropriate refills, lab, and f/u have been discussed. The patient has family members present who are agreeable with today's plan and have no additional concerns or requests. Ordered: Hemoglobin A1c TSH with Reflex Free T4 Hypertension This issue is stable and appropriate refills, lab, and f/u have been discussed. The patient reports their blood pressure has been stable at home and is not having any significant or related problems. There has been no chest pain, chest pressure, soa/hurst. Ordered: CBC w/ Differential Comprehensive Metabolic Panel Urinalysis with Culture if Indicated
--- OUTSIDE RECORDS SUMMARY | 2016-09-22 04:23 | XMS REPORT | Referral Summary ---
Author Author [facility] Organization [facility] Address Unknown Phone Unavailable Care Team Providers Care Inventory Taker Name Role Phone Dallin Marie Primary Care Physician [phone] Encounter VC Date(s): 09/13/15 - 09/13/15 [facility], [address] [place] [id number] Discharge Disposition: 01-Home or Self Care Attending Physician: Guillermo Marie MD Admitting Physician: Guillermo Marie MD Vital Signs Most recent to 1 oldest [Reference Range]: Blood Pressure 150/70 mmHg [90-140/60-90 mmHg] *HI* (09/13/15 1:54 PM) Problem List Condition Effective Dates Status [...] Daily, # 15 tabs, 0 Refill(s), Pharmacy: [facility] [id number], 0.5 tabs Oral Daily Start Date: 09/05/15 Status: Ordered albuterol 2 puffs, Inhalation, q4hr, as needed, HFA 90 mcg/actuation inhaler Start Date: 05/10/14 Status: Ordered amLODIPine-benazepril 10 mg-40 mg oral capsule See Instructions, 1 CAPS ORAL DAILY,X90 DAYS, # 90 caps, eRx: [facility] [id number], 1 CAPS ORAL DAILY,X90 DAYS Start Date: [...] ORAL DAILY,X90 DAYS, # 90 tabs, [facility]: [id number], 1 TABS ORAL DAILY,X90 DAYS Start Date: 08/13/15 Status: Ordered Glucometer strips (DME) DME Item [facility] Test Strips; test blood sugar daily, See Instructions, Supply Start Date: 05/10/14 Status: Ordered hydrochlorothiazide 25 mg oral tablet 25 mg 1 tabs, Oral, BID, X 90 days, # 180 tabs, 1 Refill(s), Pharmacy: [facility] 31676, 1 tabs Oral BID,x90 days Start Date: 08/03/15 Stop Date: 01/30/16 Status: Ordered Jardiance 10 mg oral tablet 10 mg 1 tabs, Oral, qAM, Note increase in dose., # 90 tabs, 0 Refill(s), [facility], 1 tabs Oral qAM,x90 days,Instr:Note increase in dose. Start Date: 07/02/15 Stop Date: 09/30/15 Status: Ordered metFORMIN 500 mg oral tablet See Instructions, TAKE 1 TABLET IN THE AM, AND 2 TABS IN THE PM, # 270 tabs, 1 Refill(s), Pharmacy: [facility] [id number], TAKE 1 TABLET IN THE AM, AND 2 TABS IN THE PM Start Date: 08/03/15 Status: Ordered Metoprolol Succinate ER 50 mg oral tablet, extended release 50 mg 1 tabs, Oral, Daily, # 90 tabs, 1 Refill(s), Pharmacy: [facility] [id number] Start Date: 08/03/15 Status: Ordered multivitamin 1 tabs, Oral, Daily Start Date: 05/10/14 Status: Ordered pioglitazone 45 mg oral tablet See Instructions, 1 TABS ORAL DAILY, # 90 tabs, eRx: [facility] [id number] , 1 TABS ORAL DAILY Start Date: 08/13/15 Status: Ordered potassium chloride 10 mEq oral capsule, extended release 10 mEq 1 caps, Oral, BID, X 90 days, # 180 caps, 1 Refill(s), Pharmacy: [facility] 97618, 1 caps Oral BID,x90 days Start Date: 08/03/15 Stop Date: 01/30/16 Status: Ordered simvastatin 20 mg oral tablet 20 mg 1 tabs, Oral, Bedtime (once a day), X 90 days, # 90 tabs, 1 Refill(s), Pharmacy: [facility] 49014, 1 tabs Oral Bedtime (once a day),x90 [...] Author: Guillermo Marie MD Date: Family Medicine Correction Insulin Your health care provider has decided you need to take insulin regularly. You have been given a correction scale (also called a sliding scale) in case you need extra insulin when your blood sugar is too high (hyperglycemia). The following instructions will assist you in how to use that correction scale. WHAT IS A CORRECTION SCALE? When you check your blood sugar, sometimes it will be higher than your health care provider has told you it should be. You may need an extra dose of insulin to bring your blood sugar to the recommended level (also known as your goal, target, or normal level). The correction scale is prescribed by your health care provider based on your specific needs. Your correction scale has two parts: The first shows you a blood sugar range. The second part tells you how much extra insulin to give yourself if your blood sugar falls within this range. You will not need an extra dose of insulin if your blood glucose is in the desired range. You should simply give yourself the normal amount of insulin that your health care provider has ordered for you. WHY IS IT IMPORTANT TO KEEP YOUR BLOOD SUGAR LEVELS AT YOUR DESIRED LEVEL? Keeping your blood sugar at the desired level helps to prevent long-term complications of diabetes, such as eye disease, kidney failure, nerve damage, and other serious complications. WHAT TYPE OF INSULIN WILL YOU USE? To help bring down blood sugar levels that are too high, your health care provider will prescribe a short-acting or a rapid-acting insulin. An example of a short-acting insulin would be regular insulin. Remember, you may also have a longer-acting insulin prescribed for you. WHAT DO YOU NEED TO DO? Check your blood sugar with your home blood glucose meter as recommended by your health care provider. Using your correction scale, find the range that your blood sugar lies in. Look for the units of insulin that match that blood sugar range. Give yourself the dose of correction insulin your health care provider has prescribed. Always make sure you are using the right type of insulin. Prior to the injection, make sure you have food available that you can eat in the next 1530 minutes. If your correction insulin is rapid acting, start eating your meal within 15 minutes after you have given yourself the insulin injection. If you wait longer than 15 minutes to eat, your blood sugar might get too low. If your correction insulin is short acting(regular), start eating your meal within 30 minutes after you have given yourself the insulin injection. If you wait longer than 30 minutes to eat, your blood sugar might get too low. Symptoms of low blood sugar (hypoglycemia) may include feeling shaky or weak, sweating, feeling confused, difficulty seeing, agitation, crankiness, or numbness of the lips or tongue. Check your blood sugar immediately and treat your results as directed by your health care provider. Keep a log of your blood sugar results with the time you took the test and the amount of insulin that you injected. This information will help your health care provider manage your medicines. Note on your log anything that may affect your blood sugar level, such as : Changes in normal exercise or activity. Changes in your normal schedule, such as staying up late, going on vacation, changing your diet, or holidays. New medicines. This includes prescription and [id number] medicines. Some medicines may cause high blood sugar. Sickness, stress, or anxiety. Changes in the time you took your medicine. Changes in your meals, such as skipping a meal, having a late meal, or dining out. Eating things that may affect blood glucose, such as snacks, meal portions that are larger than normal, drinks with sugar, or eating less than usual. Ask your health care provider any questions you have. Be aware of "stacking" your insulin doses. This happens when you correct a high blood sugar level by giving yourself extra insulin too soon after a previous correction dose or mealtime dose. You may then have too much insulin still active in your body and may be at risk for hypoglycemia. WHY DO YOU NEED A CORRECTION SCALE IF YOU HAVE NEVER BEEN DIAGNOSED WITH DIABETES? Keeping your blood glucose in the target range is important for your overall health. You may have been prescribed medicines that cause your blood glucose to be higher than normal. WHEN SHOULD YOU SEEK MEDICAL CARE? Contact your health care provider if: You have experienced hypoglycemia that you are unable to treat with your usual routine. You have a high blood sugar level that is not coming down with the correction dose. Your blood sugar is often too low or does not come up even if you eat a fast-acting carbohydrate. Someone who lives with you should seek immediate medical care if you become unresponsive. This information is not intended to replace advice given to you by your health care provider. Make sure you discuss any questions you have with your health care provider. Document Released: 10/30/2011 Document Revised: 02/08/2014 Document Reviewed: [employer] Patient Information 2015 [employer]. No follow up information was provided. Extracted from: Title: Office Visit Note Author: Guillermo Marie MD Date: 09/13/15 Assessment/Plan Benign essential hypertension This issue was [...] no chest pain, chest pressure, soa/hurst. Chronic knee pain This issue was reviewed, appears stable, and current therapy continued except as mentioned. Appropriate lab was reviewed from the most recent appropriate entry and lab was ordered if needed in the cpoe/nursing orders, and follow up recommended generally in 90 days and no later then six months. Diabetes mellitus type 1 with comp The patient was notified for the need for regular quarterly f/u of their diabetes. Further any pertinent medication, supplies, etc were refilled. Additionally, they are to have annual eye exams, foot exams, and regular care. Actos to 1/2 tab daily. Overweight Diet and exercise as tolerated and feasible. Consider medication when interested. Polycythemia Lab reviewed. Overnight oximetry planned. We discussed several options for treatment for this condition. The patient declined any changes or other treatments at this time. She was not willing to travel to [place] for a consult or sleep study for presumed sleep apnea. It is possible this is related to her Jardiance and that may be adjusted in the future. Snoring See above. Recheck soon.
--- OUTSIDE RECORDS SUMMARY | 2016-09-22 04:24 | XMS REPORT | Referral Summary ---
Author Author [facility] Organization [facility] Address Unknown Phone Unavailable Care Team Providers Care Eddy Current Inspector Name Role Phone Dallin Marie Primary Care Physician [phone] Encounter VC Date(s): 09/05/15 - 09/05/15 [facility], [address] [place] [id number] Discharge Disposition: 01-Home or Self Care Attending Physician: Guillermo Marie MD Admitting Physician: Guillermo Marie MD Vital Signs Most recent to 1 oldest [Reference Range]: Temperature Tympanic 35.9 degC [36.6-38.1 degC] *LOW* (09/05/15 1:02 PM) Blood Pressure 132/72 mmHg [90-140/60-90 mmHg] (09/05/15 1:02 PM) Problem List Condition Effective Dates Status [...] Daily, # 15 tabs, 0 Refill(s), Pharmacy: [id number], 0.5 tabs Oral Daily Start Date: 09/05/15 Status: Ordered albuterol 2 puffs, Inhalation, q4hr, as needed, HFA 90 mcg/actuation inhaler Start Date: 05/10/14 Status: Ordered amLODIPine-benazepril 10 mg-40 mg oral capsule See Instructions, 1 CAPS ORAL DAILY,X90 DAYS, # 90 caps, eRx: [facility] [id number], 1 CAPS ORAL DAILY,X90 DAYS Start Date: [...] ORAL DAILY,X90 DAYS, # 90 tabs, eRx: [facility] [id number], 1 TABS ORAL DAILY,X90 DAYS Start Date: 08/13/15 Status: Ordered Glucometer strips (DME) DME Item Trutrack Test Strips; test blood sugar daily, See Instructions, Supply Start Date: 05/10/14 Status: Ordered hydrochlorothiazide 25 mg oral tablet 25 mg 1 tabs, Oral, BID, X 90 days, # 180 tabs, 1 Refill(s), Pharmacy: [facility] [id number], 1 tabs Oral BID,x90 days Start Date: 08/03/15 Stop Date: 01/30/16 Status: Ordered Jardiance 10 mg oral tablet 10 mg 1 tabs, Oral, qAM, Note increase in dose., # 90 tabs, 0 Refill(s), Pharmacy: [facility] [id number], 1 tabs Oral qAM,x90 days,Instr:Note increase in dose. Start Date: 07/02/15 Stop Date: 09/30/15 Status: Ordered metFORMIN 500 mg oral tablet See Instructions, TAKE 1 TABLET IN THE AM, AND 2 TABS IN THE PM, # 270 tabs, 1 Refill(s), Pharmacy: [facility] [id number], TAKE 1 TABLET IN THE AM, AND 2 TABS IN THE PM Start Date: 08/03/15 Status: Ordered Metoprolol Succinate ER 50 mg oral tablet, extended release 50 mg 1 tabs, Oral, Daily, # 90 tabs, 1 Refill(s), Pharmacy: [facility] [id number] Start Date: 08/03/15 Status: Ordered multivitamin 1 tabs, Oral, Daily Start Date: 05/10/14 Status: Ordered pioglitazone 45 mg oral tablet See Instructions, 1 TABS ORAL DAILY, # 90 tabs, eRx: [facility] [id number] , 1 TABS ORAL DAILY Start Date: 08/13/15 Status: Ordered potassium chloride 10 mEq oral capsule, extended release 10 mEq 1 caps, Oral, BID, X 90 days, # 180 caps, 1 Refill(s), Pharmacy: [facility] [id number], 1 caps Oral BID,x90 days Start Date: 08/03/15 Stop Date: 01/30/16 Status: Ordered simvastatin 20 mg oral tablet 20 mg 1 tabs, Oral, Bedtime (once a day), X 90 days, # 90 tabs, 1 Refill(s), Pharmacy: [facility] [id number], 1 tabs Oral Bedtime (once a day),x90 days Start Date: 08/03/15 Stop Date: 01/30/16 Status: Ordered Results Hematology Most recent to 1 oldest [Reference Range]: WBC [4.8-10.8 10.2 10*3/uL 10*3/uL] (09/05/15 2:00 PM) RBC [4.00-5.20] 6.10 *HI* (09/05/15 2:00 PM) Hgb [12.0-16.0 17.8 gm/dL gm/dL] *HI* (09/05/15 2:00 PM) Hct [37.0-47.0 %] 55.3 % *HI* (09/05/15 2:00 PM) MCV [82.0-99.0 fL] 90.7 fL (09/05/15 2:00 PM) MCH [27.0-32.0 pg] 29.2 pg (09/05/15 2:00 PM) MCHC [32.0-36.0 32.2 gm/dL gm/dL] (09/05/15 2:00 PM) RDW [11.5-14.5 %] 14.9 % *HI* (09/05/15 2:00 PM) Platelet [150-400 205 10*3/uL 10*3/uL] (09/05/15 2:00 PM) MPV [8.8-14.8 fL] 11.2 fL (09/05/15 2:00 PM) Neutrophils [51-75 60 % %] (09/05/15 2:00 PM) Lymphocytes [20-46 29 % %] (09/05/15 2:00 PM) Monocytes [4-11 %] 9 % (09/05/15 2:00 PM) Eosinophils [0-4 %] 3 % (09/05/15 2:00 PM) Basophils [0-2 %] 0 % (09/05/15 2:00 PM) Neutro Absolute 6.07 10*3 [1.90-7.00 10*3] (09/05/15 2:00 PM) Lymph Absolute 2.91 10*3 [0.80-3.30 10*3] (09/05/15 2:00 PM) Atlantic Absolute 0.88 10*3 [0.30-1.00 10*3] (09/05/15 2:00 PM) Eos Absolute 0.30 10*3 [0.00-0.50 10*3] (09/05/15 2:00 PM) Baso Absolute 0.02 10*3 [0.00-0.20 10*3] (09/05/15 2:00 PM) Immunizations No data available for this section Procedures Procedure Date Related Diagnosis Body Site Cholecystectomy Social History Social History Type Response Smoking Status Never smoker Assessment and Plan Extracted from: Title: Ambulatory Patient Education Author: Guillermo Marie MD Date: Nephrology Chronic Kidney Disease Chronic kidney disease occurs when the kidneys are damaged over a long period. The kidneys are two organs that lie on either side of the spine between the middle of the back and the front of the abdomen. The kidneys: Remove wastes and extra water from the blood. Produce important hormones. These help keep bones strong, regulate blood pressure, and help create red blood cells. Balance the fluids and chemicals in the blood and tissues. A small amount of kidney damage may not cause problems, but a large amount of damage may make it difficult or impossible for the kidneys to work the way they should. If steps are not taken to slow down the kidney damage or stop it from getting worse, the kidneys may stop working permanently. Most of the time, chronic kidney disease does not go away. However, it can often be controlled, and those with the disease can usually live normal lives. CAUSES The most common causes of chronic kidney disease are diabetes and high blood pressure (hypertension). Chronic kidney disease may also be caused by: Diseases that cause the kidneys' filters to become inflamed. Diseases that affect the immune system. Genetic diseases. Medicines that damage the kidneys, such as anti-inflammatory medicines. Poisoning or exposure to toxic substances. A reoccurring kidney or urinary infection. A problem with urine flow. This may be caused by: Cancer. Kidney stones. An enlarged prostate in males. SIGNS AND SYMPTOMS Because the kidney damage in chronic kidney disease occurs slowly, symptoms develop slowly and may not be obvious until the kidney damage becomes severe. A person may have a kidney disease for years without showing any symptoms. Symptoms can include: Swelling (edema) of the legs, ankles, or feet. Tiredness (lethargy). Nausea or vomiting. Confusion. Problems with urination, such as: Decreased urine production. Frequent urination, especially at night. Frequent accidents in children who are potty trained. Muscle twitches and cramps. Shortness of breath. Weakness. Persistent itchiness. Loss of appetite. Metallic taste in the mouth. Trouble sleeping. Slowed development in children. Short stature in children. DIAGNOSIS Chronic kidney disease may be detected and diagnosed by tests, including blood, urine, imaging, or kidney biopsy tests. TREATMENT Most chronic kidney diseases cannot be cured. Treatment usually involves relieving symptoms and preventing or slowing the progression of the disease. Treatment may include: A special diet. You may need to avoid alcohol and foods thatare salty and high in potassium. Medicines. These may: Lower blood pressure. Relieve anemia. Relieve swelling. Protect the bones. HOME CARE INSTRUCTIONS Follow your prescribed diet. Your health care provider may instruct you to limit daily salt (sodium) and protein intake. Take medicines only as directed by your health care provider. Do not take any new medicines (prescription, [id number], or nutritional supplements) unless approved by your health care provider. Many medicines can worsen your kidney damage or need to have the dose adjusted. Quit smoking if you smoke. Talk to your health care provider about a smoking cessation program. Keep all follow-up visits as directed by your health care provider. Monitor your blood pressure. Start or continue an exercise plan. Get immunizations as directed by your health care provider. Take vitamin and mineral supplements as directed by your health care provider. SEEK IMMEDIATE MEDICAL CARE IF: Your symptoms get worse or you develop new symptoms. You develop symptoms of end-stage kidney disease. These include: Headaches. Abnormally dark or light skin. Numbness in the hands or feet. Easy bruising. Frequent hiccups. Menstruation stops. You have a fever. You have decreased urine production. You havepain or bleeding when urinating. MAKE SURE YOU: Understand these instructions. Will watch your condition. Will get help right away if you are not doing well or get worse. FOR MORE INFORMATION [place] [employer]: www.aakp.org National Kidney Foundation: www.kidney.org [place]: www.akfinc.org [employer] [facility]: www.lifeoptions.org and www.kidneyschool.org This information is not intended to replace advice given to you by your health care provider. Make sure you discuss any questions you have with your health care provider. Document Released: 03/17/2009 Document Revised: 03/27/2015 Document Reviewed: Exit[employer] Patient Information 2015 [employer]. No follow up information was provided. Extracted from: Title: Office Visit Note Author: Guillermo Marie MD Date: 09/05/15 Assessment/Plan Benign essential hypertension This issue was reviewed, appears stable, and current therapy continued except as mentioned. Appropriate lab was reviewed from the most recent appropriate entry and lab was ordered if needed in the cpoe /nursing orders, and follow up recommended generally in 90 days and no later then six months. The patient had an elevated blood pressure reading and is to monitor their bp and call with a report if consistently > 140/90. The patient reports their blood pressure has [...] and no later then six months. Lab stable and GFR above 45. Chronic knee pain This issue was reviewed, appears stable, and current therapy continued except as mentioned. Appropriate lab was reviewed from the most recent appropriate entry and lab was ordered if needed in the cpoe/nursing orders, and follow up recommended generally in 90 days and no later then six months. Diabetes mellitus type 1 with comp This [...] discussed and follow up was recommended. Jardiance given. Please make the medication adjustments we discussed. Please notify the office for any difficulties or concerns. Continue Jardiance. Actos to 45mg 1/2 tab daily. Monitor and call report. The patient has family members present who are agreeable with today's plan and have no additional concerns or requests. Rip here. CMP pending to recheck GFR. Hyperlipidemia This issue was reviewed, appears stable, and current therapy continued except as mentioned. Appropriate lab was reviewed from the most recent appropriate entry and lab was ordered if needed in the cpoe/nursing orders, and follow up recommended generally in 90 days and no later then six months.
[2016-09-22] MEDS ORDERED: NORMAL SALINE 1,000 ML IV ONE (04:30)
--- NOTE | 2016-09-22 04:30 | ERPDOC ---
Departure Disposition Decision Date: Sep 22, 2016 Disposition Decision Time: 10:52 (TAI SALAZAR DO) Disposition: 01 DISCHARGED HOME, SELF-CARE Impression Impression (MIRELLA RUDOLPH MD) Impression: Primary Impression: Dizziness Additional Impressions: Chronic neck pain Elevated blood pressure reading Severity: Mild (TAI SALAZAR DO) Condition: Improved Seen By: Physician only (TAI SALAZAR DO) Referrals: ZAHIRA PEREZ MD Keep appointment today as scheduled Patient Instructions: Chronic Neck Pain (GEN), Dizziness (ED), Hypertension (ED ) Problems/Meds/Labs Reviewed?: Yes Medications reviewed and manag: Yes (TAI SALAZAR DO) Follow up care ordered?: Yes Mental Status: Alert, Oriented (TAI SALAZAR DO) HPI - General Medical General Stated Complaint: DIZZINESS Time Seen by Provider: 04:25 Source: patient, EMS Exam Limitations: no limitations (MIRELLA RUDOLPH MD) Time Seen by Provider: 10:54 (TAI SALAZAR DO) HPI - General Medical Initial Comments When the patient awoke Thursday morning, 48 hours ago, she had a spinning sensation and lightheadedness when she tried to sit up. After sitting up on the bedside feelings went away, but she never quite felt back to her normal for several hours. Over the course of the day Thursday and all her Thursday she felt relatively normal, but slightly fatigued. Tonight she awoke at 2:30, took her blood sugar and it registered 130, and she was fearful that her blood sugar might get too low so she drank some [place]oo[place]oo get her blood sugar up so she can go back to sleep without fear of getting too low. When the patient tried to lay down, she "did not feel right," this made her much more fearful that something was going wrong, and her disabled would not be able to help her. She then called her neighbor, who saw the patient in significant distress and fearfulness, and called EMS for transport to the ER. The patient admits that now that she is in a controlled environment with people around her and she knows can help her, all of her symptoms have completely resolved. Onset: Rapid, Gradual Severity: moderate Associated Symptoms: DENIES: chest pain, cough, diaphoresis, fever/chills, headaches, loss of appetite, malaise, nausea/vomiting, rash, seizure, shortness of breath, syncope, weakness Hx of Similar Symptoms: No (MIRELLA RUDOLPH MD) Allergies: Coded Allergies: No Known Drug Allergies (Verified Allergy, Unknown, 09/22/16) Past History Patient Medical History Problem List Updates: morbid obesity (MIRELLA RUDOLPH MD) Past Medical History Metabolic: diabetes, hypertension Psychological: anxiety (MIRELLA RUDOLPH MD) Surgical History Denies Surgeries (MIRELLA RUDOLPH MD) Social History Smoking Status: Never smoker Does patient use chewing tobac: No Second Hand Exposure: No Substance Use Type: does not use Alcohol Intake: none (MIRELLA RUDOLPH MD) Record Review Pertinent history updated: Yes (MIRELLA RUDOLPH MD) Review of Systems Constitutional Constitutional: dizziness, DENIES: anorexia, appetite decrease, appetite increase, chills, fatigue, fever, night sweats, syncope (MIRELLA RUDOLPH MD) ENMT Ears: DENIES: pain Hearing: DENIES: hearing loss, tinnitus Balance: DENIES: vertigo Mouth/Throat: DENIES: change in swallowing, change in voice, hoarsness, painful swallowing, sore throat (MIRELLA RUDOLPH MD) Cardiovascular Cardiac: DENIES: chest pain, dyspnea on exertion Rhythm/Rate: DENIES: irregular beat, palpitations, tachycardia Vascular: DENIES: pedal edema (MIRELLA RUDOLPH MD) Pulmonary Respiratory: DENIES: cough, dyspnea, pleuritic chest pain (MIRELLA RUDOLPH MD) GI Upper Abdomen: DENIES: dysphagia, heartburn/indigestion, nausea, pain, vomiting Lower Abdomen: DENIES: blood in stool, constipation, diarrhea, pain (MIRELLA RUDOLPH MD) General: DENIES: burning, dysuria, frequency, pain, urgency (MIRELLA RUDOLPH MD) Musculoskeletal General: DENIES: cramps, joint pain, joint swelling, pain, weakness (MIRELLA RUDOLPH MD) Integumentary Skin: DENIES: rash, sores (MIRELLA RUDOLPH MD) Neurological General: DENIES: headache, numbness, tingling, vertigo, weakness (MIRELLA RUDOLPH MD) Psychiatric Psychiatric: anxiety, nervousness, DENIES: depression (MIRELLA RUDOLPH MD) Physical Exam General General Nourishment: well nourished, well developed, appears stated age, obese General Body Habitus: disheveled (MIRELLA RUDOLPH MD) Vitals and Pain First Documented Vital Signs Date Time Temp Pulse Resp B/P Pulse Ox O2 Delivery O2 Flow Rate FiO2 09/22/16 04:15 98.1 96 20 206/96 87 Room Air 09/22/16 06:00 2.00 (TAI SALAZAR DO) Vitals and Pain Weight: Kilograms: Height (feet): Height (inches): Triage Pain Scale: (MIRELLA RUDOLPH MD) RN VS reviewed by Provider: Yes (MIRELLA RUDOLPH MD) Normal Exams: Head: Normocephalic w/o trauma Eyes: Pupils are PERRLA w/ EOMI, No scleral icterus, irritation, or foreign bodies noted ENMT: No facial trauma, nasal exudates, pharyngeal erythema, or exudates are noted Neck: Full range of motion, without adenopathy, JVD, bruits or thyromegaly Chest/Resp: Clear all bennett, with good airflow, and symmetry bilaterally CV: Regular rate and rhythm, without murmur or gallop, Pulses 2+ all extremities, capillary refill, <2 seconds all ext., no pedal edema noted Abdomen: Bowel sounds positive, soft, non-tender, non-distended, no hepatosplenomegaly, masses or bruits noted Lymphatic: No lymphadenopathy, or lymphedema noted Musculoskeletal: No tenderness, or deformity noted, good range of motion, all extremities Integumentary: No rashes, hives, or bruising noted, hair and nails, without abnormality Neurologic: Patient is alert, and oriented, cranial nerves, motor/sensory/ cerebellar, exams w/o gross deficits, to observation Psychiatric: Patient exhibits, appropriate attention, emotion and affect (MIRELLA RUDOLPH MD) Neurologic (brief) Neurological Brief: FOUND: CN w/o gross def to obs, DTR 2/4 all extremities, motor-no gross deficits, sensory-no gross deficits, NOT FOUND: ataxia (MIRELLA RUDOLPH MD) Progress Results/Orders Orders Procedure Category Date Status Time Iv Lock (Ed Only) EDM 09/22/16 Transmitted 04:25 Cbc W/Auto LAB 09/22/16 Complete Diff-Reflex Manual Cmp - Comprehensive LAB 09/22/16 Complete Metabolic Troponin I W LAB 09/22/16 Complete Hemolysis Index Ua, Dip Wreflex LAB 09/22/16 Complete Microsc & Terrazzo Finisher 04:25 Normal Saline (Normal PHA 09/22/16 Complete Saline Iv) 04:30 Ct Head W/O Contrast CT 09/22/16 Resulted Amlodipine/Benazepril PHA 09/22/16 Complete 11/08 (Lotrel 11/08) 10:30 EKG EKG 09/22/16 Logged (TAI SALAZAR DO) Lab Results Laboratory Tests Test 09/22/16 04:56 09/22/16 06:28 White Blood Count 9.8T/MM3 Red Blood Count 5.78M/MM3 Hemoglobin 17.0GM/DL Hematocrit 53.2% Mean Corpuscular Volume 92.0UM3 Mean Corpuscular Hemoglobin 29.4UUG Mean Corpuscular Hemoglobin Concent 32.0GM/DL RDW Standard Deviation 49.0FL Platelet Count 166T/MM3 Mean Platelet Volume 11.5UM3 Immature Granulocyte % (Auto) 0.6% Neutrophils (%) (Auto) 61.3% Lymphocytes (%) (Auto) 28.4% Monocytes (%) (Auto) 6.5% Eosinophils (%) (Auto) 3.0% Basophils (%) (Auto) 0.2% Absolute Immature Granulocyte (auto 0.06T/MM3 Absolute Neutrophils (auto) 6.0T/MM3 Absolute Lymphocytes (auto) 2.8T/MM3 Absolute Monocytes (auto) 0.6T/MM3 Absolute Eosinophils (auto) 0.3T/MM3 Absolute Basophils (auto) 0.0T/MM3 Turbidity < 20 Sodium Level 141MEQ/L Potassium Level 4.2MEQ/L Chloride Level 99MEQ/L Carbon Dioxide Level 29MEQ/L Anion Gap 13MEQ/L Blood Urea Nitrogen 17.0MG/DL Creatinine 1.0MG/DL Glomerular Filtration Rate Calc 55 BUN/Creatinine Ratio 17RATIO Glucose Level 268MG/DL Calculated Osmolality 282MOSM/KG Calcium Level 9.8MG/DL Total Bilirubin 0.70MG/DL Icterus Index < 2 Aspartate Amino Transf (AST/SGOT) 30U/L Alanine Aminotransferase (ALT/SGPT) 23U/L Alkaline Phosphatase 56U/L Troponin I < 0.012ng/ml Total Protein 7.5G/DL Albumin 4.2G/DL Globulin 3.3G/DL Albumin/Globulin Ratio 1.3RATIO Chemistry Specimen Hemolysis < 15 Urine Collection Type Cleancatch-midstream Urine Color Yellow Urine Turbidity Clear Urine pH 5.5 Urine Specific Schofield 1.010 Urine Protein Negative Urine Glucose (UA) 3+ Urine Ketones Trace Urine Blood Negative Urine Nitrite Negative Urine Bilirubin Negative Urine Urobilinogen 0.2EU/DL Urine Leukocyte Esterase Negative Urinalysis Comment Microscopic not ind. (TAI SALAZAR DO) Medications Current ED Medications Sodium Chloride (Normal Saline IV) 1,000 ml @ 0 mls/hr Q0M ONCE IV Last administered on 09/22/16 05:42; Start 09/22/16 at 04:30; Stop 09/22/16 at 04:32; Status DC Amlodipine/ Benazepril HCl (Lotrel 11/08) 2 cap O ONCE PO Last administered on 09/22/16 10:40; Start 09/22/16 at 10:30; Stop 09/22/16 at 10:31; Status DC (TAI SALAZAR DO) Progress Progress Patient did present slightly tachycardic, although her blood pressure is normal to elevated. Patient given 1 L normal saline bolus EKG - normal sinus rhythm, chronic appearing right bundle-branch block, no acute ischemia or infarction is seen CBC - white blood cell count, elevated hemoglobin 17.6 indicative of probable volume contraction CMP - normal Troponin - normal UA - (MIRELLA RUDOLPH MD) Progress Patient feeling better following medications and IVF I discussed admission, but the patient refused Patient apparently has an appointment with Dr. Perez at 14:30 today (TAI SALAZAR DO) CT CT : Reason for Exam: Dizziness CT: Head no contrast Interpretation: Normal, Reviewed Written Report (TAI SALAZAR DO) MIRELLA RUDOLPH MD Sep 22, 2016 04:30 TAI SALAZAR DO Sep 22, 2016 10:54
[2016-09-22 05:06] LABS: BASOPHILS % (AUTO) 0.2 % (0-2); EOSINOPHILS # (AUTO) 0.3 T/MM3 (0-0.5); HCT - HEMATOCRIT 53.2 % (36-46); IMMATURE GRANULOCYTE # (AUTO) 0.06 T/MM3 (0.00-0.03); IMMATURE GRANULOCYTE % (AUTO) 0.6 % (0.0-0.5); LYMPHOCYTES # (AUTO) 2.8 T/MM3 (1-4.8); LYMPHOCYTES % (AUTO) 28.4 % (23-45); MEAN CORPUSCULAR HGB 29.4 UUG (26-34); MEAN PLATELET VOLUME 11.5 UM3 (9.4-12.4); MONOCYTES # (AUTO) 0.6 T/MM3 (0-0.8); MONOCYTES % (AUTO) 6.5 % (0-9.0); NEUTROPHILS % (AUTO) 61.3 % (33-66); RED BLOOD COUNT 5.78 M/MM3 (4.00-5.20); WBC - WHITE BLOOD COUNT 9.8 T/MM3 (4.5-11.0)
[2016-09-22 05:18] LABS: ALBUMIN 4.2 G/DL (3.5-5.0); ALBUMIN/GLOBULIN RATIO 1.3 RATIO (1.1-2.2); ALKALINE PHOSPHATASE 56 U/L (38-126); ALT (SGPT) 23 U/L (9-52); ANION GAP 13 MEQ/L (5-15); AST (SGOT) 30 U/L (14-36); BUN/CREATININE RATIO 17 RATIO (6-26); CALCIUM 9.8 MG/DL (8.4-10.2); CHLORIDE 99 MEQ/L (98-107); CO2 - CARBON DIOXIDE 29 MEQ/L (22-30); GLOMERULAR FILTRATION RATE 55; GLUCOSE 268 MG/DL (65-110); POTASSIUM 4.2 MEQ/L (3.6-5); SODIUM 141 MEQ/L (134-144); TOTAL PROTEIN 7.5 G/DL (6.3-8.2)
--- NOTE | 2016-09-22 06:12 | NUR ---
REPORT REPORT RECEIVED FROM GIO OROZCO.
[2016-09-22] MEDS ORDERED: SIMV20TA6 PO (06:23)
[2016-09-22] MEDS ORDERED: HYDR25TA PO (06:23)
[2016-09-22] MEDS ORDERED: EMPA10TA PO (06:23)
[2016-09-22] MEDS ORDERED: AMLO1CAP PO (06:23)
[2016-09-22] MEDS ORDERED: METO-277 PO (06:23)
[2016-09-22] MEDS ORDERED: GLIM1TAB2 PO (06:23)
[2016-09-22] MEDS ORDERED: POTA10TA14 PO (06:23)
[2016-09-22] MEDS ORDERED: METF500T4 PO (06:24)
--- NOTE | 2016-09-22 06:25 | NUR ---
BATHROOM PATIENT UP TO BEDSIDE COMMODE. REPORTS DIZZINESS WHEN GOING FROM LYING TO SITTING WHICH IMPROVED AFTER SITTING ON SIDE OF BED. WHEN ASSISTED BACK TO BED PATIENT DENIED DIZZINESS. URINE SPECIMEN COLLECTED, LABELED, AND WALKED TO LAB.
[2016-09-22 06:35] LABS: BLOOD, URINE NEGATIVE (NEGATIVE); COLOR,URINE YELLOW (YELLOW); LEUKOCYTE ESTERASE ,URINE NEGATIVE (NEGATIVE); NITRITE,URINE NEGATIVE (NEGATIVE); UROBILINOGEN,URINE 0.2 EU/DL (NORMAL)
--- NOTE | 2016-09-22 09:14 | NUR ---
CT TRANSPORTED TO CT VIA STRETCHER PER BLENDING TECHNICIAN.
--- NOTE | 2016-09-22 09:26 | NUR ---
RETURN RETURNED FROM CT.
--- NOTE | 2016-09-22 09:35 | DI ---
Indication: ITS.REASON: dizziness PROCEDURE: CT HEAD W/O CONTRAST: Encounter: Initial Comparison: None Technique: Axial CT images through the head were performed without contrast. Iterative Reconstruction dose reducing technique was utilized. FINDINGS: The ventricles are of normal size, shape, and contour for the patient's age. There are numerous areas of low attenuation in the white matter which most likely represent changes from chronic microvascular ischemia. The brainstem, cerebellum, and cerebral hemispheres otherwise have a normal morphology and CT attenuation. There is no evidence of midline displacement. No hemorrhage, signs of acute territorial stroke, mass effect, mass lesions, or edema is evident. Significant intracranial arterial vascular calcifications. The visualized portions of the skull base, midface, and calvarium demonstrate no abnormality. The paranasal sinuses are well aerated and free of significant disease. The tympanic and mastoid cavities appear normal. IMPRESSION: No acute intracranial abnormality or hemorrhage. Advanced white matter disease for age. .
[2016-09-22] MEDS ORDERED: AMLODIPINE/BENAZEPRIL 5 MG/20 MG CAPSULE PO ONE (10:30)
[2016-09-22 11:30] VITALS: BP 205/91; PULSE 90; RESP 16; O2SAT 93
== END 2016-09-22 11:35 | disposition home or self-care (01) ==
LOC: ED 04:15
DX: R42 Dizziness and giddiness (principal); M54.2 Cervicalgia; G89.29 Other chronic pain; I10 Essential (primary) hypertension
CPT/HCPCS: 36415; 70450; 80053; 81003; 84484; 85025; 93005; 96360; 96361; 99284; A9270; J7030